=== PATIENT | female | born 1945 | race Caucasian/White ===

== ENCOUNTER 2020-07-08 13:30 | Outpatient (RCR) | payer MEDICARE, SELFPAY ==
--- NOTE | 2020-05-19 10:27 | PCCPR ---
Absent-has been having issues with her gallbladder. States she has to have surgery in a couple of weeks to get it removed. Will also be absent Sunday-seeing the thoracic surgeon for a follow up and is getting a holter monitor placed.
--- NOTE | 2020-06-07 12:40 | PCCPR ---
Absent today, not feeling well.
--- NOTE | 2020-06-28 15:00 | PCCPR ---
Called out today, no reason given.
--- NOTE | 2020-07-05 09:51 | PCCPR ---
Absent due to weather Lizzette states she was scheduled for a MD visit in [facility], she cancelled. She would not be in today with the cold and snow.
== END 2020-07-08 16:00 | disposition home or self-care (01) ==
LOC: ANHCPREHAB 13:30
PROVIDERS: PCP Family Medicine; Visit Provider Internal Medicine Cardiovascular Disease
DX: Z95.5 Presence of coronary angioplasty implant and graft (principal)
CPT/HCPCS: 93798

== ENCOUNTER 2024-10-08 00:56 | Day surgery (SDC) | payer MEDICARE, SELFPAY ==
[2024-10-06 09:44] VITALS: BMI 25.6
--- OUTSIDE RECORDS SUMMARY | 2024-10-08 00:58 | XMS_ITS | Encounter Summary ---
Author Organization [facility] Address [address] [place] [address] Care Team Providers Care Seamer Name Role Phone Dev Galvin MD Primary Care Provider [phone] Wing Sweeney MD Unavailable [phone] Lincoln Vang MD Unavailable [phone] Manjeet Mcdonough MD Unavailable [phone] Ros Iqbal PT Unavailable Unavailable Reason for Referral * Diagnostic Imaging (Routine) - Closed Specialty Diagnoses / Procedures Referred By Contac t Referred To Contact Radiology Diagnoses Stage 3b chronic kidney disease (CKD) (HCC) Hypertension, unspecified type Hypertensive chronic kidney disease with stage 1 through stage 4 chronic kidney disease, or unspecified chronic kidney disease Acute renal failure with other specified pathological lesion in kidney 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 Procedures CT Abdomen Pelvis WO Contrast Thanh Nguyen MD [address] [place] [address] Phone: tel: fax: [address] [phone] Referral ID Status Reason Start Date Expiration Date Visits Re quested Visits Authorized [id number] Closed 09/29/2024 03/29/2025 1 1 Reason for Visit * Diagnostic Imaging (Routine) - Closed Specialty Diagnoses / Procedures Referred By Contac t Referred To Contact Radiology Diagnoses Stage 3b chronic kidney disease (CKD) (HCC) Hypertension, unspecified type Hypertensive chronic kidney disease with stage 1 through stage 4 chronic kidney disease, or unspecified chronic kidney disease Acute renal failure with other specified pathological lesion in kidney 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 Procedures CT Abdomen Pelvis WO Contrast Thanh Nguyen MD [address] [place] [address] Phone: tel: fax: [address] [phone] Referral ID Status Reason Start Date Expiration Date Visits Re quested Visits Authorized [id number] Closed 09/29/2024 03/29/2025 1 1 Encounter Details Date Type Department Care Team (Latest Contact Info) Description 10/06/2024 12:27 PM CDT - 10/06/2024 11:59 PM CDT Hospital Encounter [facility] [address] [place] [id number] Stage 3b chronic kidney disease (CKD) (HCC); Hypertension, unspecified type; Hypertensive chronic kidney disease with stage 1 through stage 4 chronic kidney disease, or unspecified chronic kidney disease; Acute renal failure with other specified pathological lesion in kidney; Neoplasm of right kidney; Neoplasm of uncertain behavior of right kidney Discharge Disposition: Discharge to home or self care Social History Tobacco Use Types Packs/Day Years Used Date Smoking Tobacco: Former Cigarettes 1 50 1 - 03/03/2020 Smokeless Tobacco: Never Comments:Down to 3 cigarette s per day for 2 weeks Alcohol Use Standard Drinks/Week Comments No 0 (1 standard drink = 0.6 oz pur e alcohol) AUDIT-C Answer Date Recorded Q1: How often do you have a drink containing alcohol? Never 08/07/2024 Q2: How many drinks containi ng alcohol do you have on a typical day when you are drinking? Patient does not drink Frequency of Binge Drinking Not on file 07/20 PHQ-2 Answer Date Recorded PHQ-2 Total Score (If total score is 3 or more points, staff should administer the PHQ-9) 0 07/22/2024 PHQ-9 Answer Date Recorded PHQ-9 Total Score 4 03/12/2024 Personal Safety Answer Date Recorded Have you ever been in or are you currently in a harmful physical or emotional relationship or is someone making you feel afraid or unsafe? 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 Gender Identity Not on file Sexual Orientation Not on file Occupation Industry Job Start Date Job End Date Retired Not on file Not on file Not on file documented as of this encounter Medications at Time of Discharge acetaminophen 325 mg capsule acetaminophen ER (TYLENOL) 650 mg 8 hr tablet Take 2 tablets (1,300 mg total) by mouth nightly acidophilus-pect in, citrus 100 million cell-10 mg capsule Take by mouth aspirin 81 mg enteric coated tablet Take 1 tablet (81 mg total) by mouth daily calcium carb/vit D3/minerals (CALCIUM 600 + MINERALS ORAL) 07/25/2021 cephalexin (KEFTAB) 250 mg tabletIndication s:Prevention of Bacterial Urinary Tract Infection Take 1 tablet (250 mg total) by mouth daily 90 tablet 3 10/18/2023 10/17/2024 cholecalciferol (cholecalciferol ) 25 mcg (1,000 unit) tablet Take 1 tablet (1,000 Units total) by mouth daily d-mannose 500 mg capsule Take 1 tablet by mouth 2 (two) times a day fluticasone propionate (FLONASE) 50 mcg/actuation nasal spray 2 sprays daily 09/02/2023 furosemide (LASIX) 40 mg tablet 1 tablet daily as needed for swelling 90 tablet 3 07/23/2024 metoprolol XL (TOPROL-XL) 25 mg extended release tablet TAKE 1 TABLET(25 MG) BY MOUTH DAILY 90 tablet 3 05/06/2024 ondansetron (ZOFRAN) 4 mg tablet Take 1 tablet (4 mg total) by mouth every 8 (eight) hours as needed for nausea or vomiting 60 tablet 3 08/07/2024 10/26/2024 potassium chloride ER 20 mEq CR tablet TAKE 1 TABLET(20 MEQ) BY MOUTH DAILY 90 tablet 2 10/06/2024 simethicone (MYLICON) 125 mg chewable tablet Take 1 tablet (125 mg total) by mouth 3 (three) times a day with meals 90 tablet 3 08/07/2024 12/05/2024 spironolactone (ALDACTONE) 25 mg tablet TAKE 1 TABLET(25 MG) BY MOUTH DAILY 90 tablet 3 11/28/2023 documented as of this encounter Discharge Disposition Disposition Code Departure Means Destination Discharge to home or self care documented in this encounter Plan of Treatment Pending Results Name Type Priority Associated Diagnoses Date /Time CT Abdomen Pelvis WO Contrast Imaging Schedule Routine, Read Routine (OP Routine) Stage 3b chronic kidney disease (CKD) (HCC) Hypertension, unspecified type Hypertensive chronic kidney disease with stage 1 through stage 4 chronic kidney disease, or unspecified chronic kidney disease Acute renal failure with other specified pathological lesion in kidney 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 10/06/2024 12:54 PM CDT Scheduled Orders Name Type Priority Associated Diagnoses Orde r Schedule CT Abdomen Pelvis WO Contrast Imaging Schedule Routine, Read Routine (OP Routine) Stage 3b chronic kidney disease (CKD) (HCC) Hypertension, unspecified type Hypertensive chronic kidney disease with stage 1 through stage 4 chronic kidney disease, or unspecified chronic kidney disease Acute renal failure with other specified pathological lesion in kidney 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 Once for 1 Occurrences starting 10/06/2024 until 10/06/2024 documented as of this encounter Visit Diagnoses Diagnosis Stage 3b chronic kidney disease (CKD) (HCC) Hypertension, unspecified type Hypertensive chronic kidney disease with stage 1 through stage 4 chronic kidney disease, or unspecified chronic kidney disease Acute renal failure with other specified pathological lesion in kidney 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
--- OUTSIDE RECORDS SUMMARY | 2024-10-08 00:58 | XMS_ITS | Clinical Summary ---
Author Organization [facility] Address [address] [place] [address] Phone Care Team Providers Care Software Verification Engineer Name Role Phone Dev Galvin MD Primary Care Provider [phone] Allergies No known active allergies Medications aspirin 325 MG Tablet Take 325 mg by mouth daily. Active vitamin E (TOCOPHEROL) 1000 UNIT Capsule Take 1,000 Units by mouth daily. Active loratadine (CLARITIN) 10 MG Tablet Take 10 mg by mouth daily. Active HYDROcodone-acet aminophen (NORCO) 5-325 MG Tablet Take 1 Tab by mouth every 6 hours as needed for Moderate pain (4-6) or more severe pain if patient requests. Active acetaminophen (TYLENOL) 500 MG Tablet Take 1,000 mg by mouth every 6 hours as needed for Mild pain (1-3) or more severe pain if patient requests. Active Calcium Carbonate-Vit D-Min (CALCIUM 600+D3 PLUS MINERALS) 600-800 MG-UNIT Tablet Take 1 Tab by mouth daily. Active Bupivacaine HCl-NaCl 0.125-0.9 % Solution 8 mL/hr by Intercatheter route continuous. Active ferrous sulfate 325 (65 Fe) MG Tablet Take 325 mg by mouth daily. Active magnesium hydroxide (MILK OF MAGNESIA) 400 MG/5ML Suspension Take 5 mL by mouth daily as needed for Constipation. Active Triamcinolone Acetonide 55 MCG/ACT Aerosol 1 [place] by Nasal route daily. Active Probiotic Product (PROBIOTIC DAILY PO) Take 1 Tab by mouth daily. 10/09/19 18 Active denosumab (PROLIA) 60 MG/ML Solution 60 mg by Subcutaneous route See Admin Instructions. physician administers in office every 6 months 11/07/19 18 Active silver sulfADIAZINE (SILVADENE) 1 % Cream Apply 1 Drop 2 times daily. Active Social History Tobacco Use Types Packs/Day Years Used Date Smoking Tobacco: Never Assessed Comments Unknown Sex and Gender Information Value Date Recorded Sex Assigned at Not on file Legal Sex Female 7:38 AM CDT Gender Identity Not on file Sexual Orientation Not on file Last Filed Vital Signs Vital Sign Reading Time Taken Comments Blood Pressure 120/60 12/06/2017 9:26 AM CDT Pulse 76 12/06/2017 9:26 AM CDT Temperature 36.4 C (97.6 F) 12/06/2017 9:26 AM CDT Respiratory Rate 18 12/06/2017 9:26 AM CDT Oxygen Saturation 96% 12/06/2017 9:26 AM CDT Inhaled Oxygen Concentration - - Weight 59 kg (130 lb) 10/08/2017 9:44 AM CDT Height 160 cm (5' 3 ) 10/08/2017 9:44 AM CDT Body Mass Index 23.03 10/08/2017 9:44 AM CDT Plan of Treatment Health Maintenance Due Date Last Done Comments Hepatitis C Virus (HCV) Screening 1945 TdaP Immunization 1945 Zoster Immunization (1 of 2) 1993 Respiratory Syncytial Virus (RSV) Immunization (Adult) (1 - 1-dose 75+ series) 2018 SARS-COV-2 Immunization ( season) 2024 08/24/2021, 02/15/2021, 07/14/2020, Additional history exists Influenza Immunization (Season Ended) 2025 02/10/2021, 02/22/2020, 05/07/2019, Additional history exists Pneumococcal Immunization (50+ years) Completed 02/12/2015, 11/11/2008 Hepatitis B Immunization Aged Out No longer eligible based on patient's age to complete this topic Human Papillomavirus (HPV) Immunization Aged Out No longer eligible based on patient's age to complete this topic Meningococcal Immunization (ACWY) Aged Out No longer eligible based on patient's age to complete this topic Rotavirus Immunization Aged Out No lo nger eligible based on patient's age to complete this topic Insurance MEDICARE C [facility] Advance Directives Documents on File Type Date Recorded 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
--- OUTSIDE RECORDS SUMMARY | 2024-10-08 00:58 | XMS_ITS | Patient Health Record ---
Author Organization [facility] Address [address] [place] [address] Care Team Providers Care Lead Database Developer Name Role Phone Monica Alvarado Unavailable [phone] Allergies No Known Allergies Reason For Referral No Information Medications Medication SIG (Take, Route, Frequency, Duration) Notes Start Date End Date Status cholecalciferol (vitamin D3) 25 mcg (1,000 unit) take 1 capsule by oral route once oral 1 *Reorder from [employer] for eRx and Interaction Alerts* Active Pantoprazole Sodium 40 MG take 1 tablet (40 mg) by oral route once daily Oral 1 Active Metoprolol Succinate ER 25 MG take 1.5 tablets daily Oral Active Calcium Carbonate 650 mg calcium (1,625 mg) take 1 tablet by oral route once Oral 1 *Pick strength-form from [employer] for eRX* Active MiraLax 17 GM take 1 packet (17 gram) mixed with 8 oz. water, juice, soda, coffee or tea by oral route once daily Oral 1 Active Prolia 60 mg/mL inject 1 milliliter (60 mg) by subcutaneous route every 6 months in the upper arm, upper thigh or abdomen subcutaneous *Pick strength-form from [employer] for eRX* Active Spironolactone 25 MG take 1 tablet (25 mg) by oral route once daily Oral 1 Active Furosemide 20 MG take 1 tablet (20 mg) by oral route once daily Oral 1 Active FiberCon 625 MG take 1 tablet by oral route once Oral 1 Active Loratadine 10 MG take 1 tablet (10 mg) by oral route once daily Oral 1 Active Aspirin Adult Low Strength 81 MG take 1 tablet (81 mg) by oral route once daily Oral 1 Active Acetaminophen 325 MG take 2 tablets (650 mg) by oral route every 4 hours as needed Oral 6 Active Famotidine-Ca Carb-Mag Hydrox 10 -800-165mg take 1 daily as needed for heartburn oral *Pick strength-form from [employer] for eRX* Active Plan Of Treatment No Information Insurance Providers Payer Name Payer Address Payer Phone Subscriber Number Group Number Insured Name Patient Relationship to Insured Coverage Start Date Coverage End Date DO NOT USE [id number] Lizzette Allen Self - patient is the insured Medical (General) History Surgical History Surgery Date(Month/Year) Mitral Valve repair; 2020-11-13 Cholecstectomy; 2020-11-13 Closed treatment of patellar fracture; 2 MAZE Procedure; 2020-11-13 tonsilectomy; 2020-11-13 Hysterectomy; 2020-11-13 Breast lumpectomy with sentinel node bio psy; 2020-11-13
--- OUTSIDE RECORDS SUMMARY | 2024-10-08 00:58 | XMS_ITS | Clinical Summary ---
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 Name Role Phone Dev Galvin MD Primary Care Provider [phone] Wing Sweeney MD Unavailable [phone] Lincoln Vang MD Unavailable [phone] Manjeet Mcdonough MD Unavailable [phone] Ros Iqbal PT Unavailable Unavailable Allergies No known active allergies Medications acidophilus-pect in, citrus 100 million cell-10 mg capsule Take by mouth Active cholecalciferol (cholecalciferol ) 25 mcg (1,000 unit) tablet Take 1 tablet (1,000 Units total) by mouth daily Active d-mannose 500 mg capsule Take 1 tablet by mouth 2 (two) times a day Active calcium carb/vit D3/minerals (CALCIUM 600 + MINERALS ORAL) 07/26/19 22 Active aspirin 81 mg enteric coated tablet Take 1 tablet (81 mg total) by mouth daily Active acetaminophen 325 mg capsule Activ e lansoprazole (PREVACID) 30 mg capsule Take 1 capsule (30 mg total) by mouth daily In evening 90 capsule 3 04/26/20 23 Active denosumab (PROLIA) 60 mg/mL syringeIndicatio ns:Age-related osteoporosis without current pathological fracture Inject 1 mL (60 mg total) under the skin once for 1 dose 1 mL 07/25/19 24 Active cephalexin (KEFTAB) 250 mg tabletIndication s:Prevention of Bacterial Urinary Tract Infection Take 1 tablet (250 mg total) by mouth daily 90 tablet 3 10/18/19 24 025 Active fluticasone propionate (FLONASE) 50 mcg/actuation nasal spray 2 sprays daily 09/02/19 24 Active spironolactone (ALDACTONE) 25 mg tablet TAKE 1 TABLET(25 MG) BY MOUTH DAILY 90 tablet 3 11/28/19 24 Active famotidine (PEPCID) 20 mg tabletIndication s:Vocal fold nodule Take 1 tablet (20 mg total) by mouth nightly 90 tablet 3 01/31/20 24 Active acetaminophen ER (TYLENOL) 650 mg 8 hr tablet Take 2 tablets (1,300 mg total) by mouth nightly Active metoprolol XL (TOPROL-XL) 25 mg extended release tablet TAKE 1 TABLET(25 MG) BY MOUTH DAILY 90 tablet 3 05/06/20 24 Active furosemide (LASIX) 40 mg tablet 1 tablet daily as needed for swelling 90 tablet 3 07/24/19 25 Active simethicone (MYLICON) 125 mg chewable tablet Take 1 tablet (125 mg total) by mouth 3 (three) times a day with meals 90 tablet 3 08/08/19 25 025 Active ondansetron (ZOFRAN) 4 mg tablet Take 1 tablet (4 mg total) by mouth every 8 (eight) hours as needed for nausea or vomiting 60 tablet 3 08/08/19 25 025 Active potassium chloride ER 20 mEq CR tablet TAKE 1 TABLET(20 MEQ) BY MOUTH DAILY 90 tablet 2 10/07/19 25 Active potassium chloride ER 20 mEq CR tablet TAKE 1 TABLET(20 MEQ) BY MOUTH DAILY 90 tablet 2 03/31/20 24 025 Discontinued Active Problems Problem Noted Date Diagnosed Date History of colonic polyps 08/29/2024 Constipation 08/29/2024 Encounter for screening colonoscopy 08/29/2024 Laryngopharyngeal reflux 07/22/2024 Assessment & Plan (07/22/2024 2:56 PM GENERAL OPHTHALMOLOGIST): Cpntinue sno dual PPI and H2 favian to good effect and willfollwore sponse. Stage 3b chronic kidney disease 07/22/2024 Assessment & Plan (07/22/2024 2:56 PM GENERAL OPHTHALMOLOGIST): [id number] hydraiton and f/u with Dr. Nguyen, renal. No change at the present time. Peripheral tear of meniscus of right knee 2023 Medicare annual wellness visit, subsequent 02/02 Vocal fold nodule 01/31/2024 Assessment & Plan (04/30/2024 2:38 PM GENERAL OPHTHALMOLOGIST): Resolved, no nodule seen today Continue Prevacid 30-60 minutes prior to any other medication, food or fluids other than water Pepcid 20 mg at bedtime Assessment & Plan (01/31/2024 2:55 PM CDT): Prevacid 30-60 minutes prior to any other medication, food or fluids other than water Pepcid 20 mg at bedtime Follow up in 3 months for rescope and consider MDL with removal of Right true vocal fold nodule if not gone by then Stage 3a chronic kidney disease 01/06/2024 Sore throat 01/06/2024 Change in voice 01/06/2024 Lipid screening 01/06/2024 Assessment & Plan (07/22/2024 2:56 PM GENERAL OPHTHALMOLOGIST): Labokwr ordered and pending. Acute non-recurrent pansinusitis 06/01/2023 Assessment & Plan (06/01/2023 12:02 PM GENERAL OPHTHALMOLOGIST): Patient has been experiencing congestion and sinus pressure for greater than 2 weeks. Prescribed course of antibiotics, instructed patient to take medication with food. Can continue Tylenol/ ibuprofen as needed for headaches. Recommended Flonase use. Stressed importance of immediately discontinuing oxymetazoline. Patient to follow-up if no improvement in the next week or sooner if any new or worsening symptoms occur. Rhinitis medicamentosa 06/01/2023 Assessment & Plan (06/01/2023 12:00 PM GENERAL OPHTHALMOLOGIST): Explained to patient that using oxymetazoline beyond 3 days will cause rebound congestion. Instructed her to discontinue medication immediately. Prescribed prednisone taper and instructed on Flonase use. Skin tear of left elbow without complication Assessment & Plan (02/13/2023 3:54 PM CDT): Injury occurred greater than 2 weeks ago. Patient reports increased redness and tenderness in the past few days. No obvious signs of infection or systemic signs of infection. Given regression prescribed doxycycline in addition to topical mupirocin ointment. Instructed patient to wash with soap and water pat dry and apply thin layer of mupirocin. Alternate covering for protection and leaving open to air at times. Will update Tdap today. Instructed patient to follow-up with me in office she experiences any new or worsening symptoms. Cervical spinal stenosis 10/26/2022 Pancreatic cyst 08/18/2022 Assessment & Plan (05/04/2023 12:38 PM GENERAL OPHTHALMOLOGIST): Asymptomatic at the time. Will plan repeat evaluation in 1 year as recommended. Assessment & Plan (12/07/2022 12:04 PM CDT): Repeat MRCP to evaluate the pancreas and the pancreatic cyst in April of 2023 as recommended. 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 Small size cyst noted and no intervention was needed. She had EUS of the pancreas last year. Assessment & Plan (08/18/2022 12:17 PM CDT): Small 2 mm cyst noted on endoscopic ultrasound in 2021. Appearance was suggestive of a side-branch intraductal mucinous cystic neoplasm. This size the small and at this point no intervention is needed. Will plan repeat endoscopic ultrasound in 1 or 2 years. Spondylosis of lumbar region without myelopathy or radiculopathy 06/13/2022 Spinal stenosis of lumbar re gion without neurogenic claudication 06/13/2022 Mucinous cystadenoma of pancreas 05/10/2022 Assessment & Plan (05/10/2022 3:33 PM GENERAL OPHTHALMOLOGIST): Small 2 mm cystic lesions suggestive of branch chain mucinous neoplasm with the pancreas noted on endoscopic ultrasound. I doubt this is contributing to any symptoms at this time. Also considering the patient age and small size of the lesion conservative follow-up with imaging or repeat endoscopic ultrasound in 1 year will be pursued Chronic abdominal pain 03/25/2022 Assessment & Plan (05/04/2023 12:36 PM GENERAL OPHTHALMOLOGIST): Chronic upper abdominal pain likely referred burn from her back and the significant spinal stenosis. I think gentle exercising and muscle relaxant will be of benefit. Patient is following with pain management. Assessment & Plan (08/18/2022 12:18 PM CDT): Patient has chronic upper abdominal pain. All GI workup has been nonconclusive. I suspect neuropathic pain or possibly radiating pain from the back. Patient did not tolerate much of the pain modulating agents such as gabapentin or nortriptyline. Patient does not tolerate Linzess for the chronic constipation. She is doing well with fiber supplements. At this point she will try to see pain management as she might benefit from some intervention regarding her back pain which could be radiating to the front. Otherwise will plan to see the patient back in the office in 4 months and follow the pattern of her symptoms. Assessment & Plan (03/25/2022 7:23 PM CDT): Patient have chronic upper abdominal pain. Pain seems worse at this time with mild new weight loss. Will re-evaluate to rule out new changes. Schedule CT abdomen and pelvis with oral contrast only considering her Kidney issues. If normal will refer for EGD with EUS of the pancreas. To help with symptoms will start Gabapentin 100 mg PO bid. To rule out referred back pain, will schedule MRI of the thoracic and lumbar spines. Degenerative disc disease, cervical 09/27/2021 Degenerative cervical spinal stenosis 09/27/2021 Facet arthropathy, cervical 09/27/2021 Cervical radiculopathy 09/01/2021 Chronic right shoulder pain 09/01/2021 Chronic kidney disease 05/24/2021 Chills 03/28/2021 Pulmonary hypertension, unspecified 10/12/2020 Assessment & Plan (07/22/2024 2:56 PM GENERAL OPHTHALMOLOGIST): No s/s of fluid overlaoad. Continue to montior renal function with balance of diuresis and no increaed work of breathing. 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 Pathology reviewed as a benign lesion from the liver biopsy. Okay for submerging incisions. No heavy lifting for a further 2 weeks. Patient will call us back with any further questions or concerns. Assessment & Plan (06/24/2020 9:57 AM GENERAL OPHTHALMOLOGIST): Symptoms and HIDA scan consistent with biliary dyskinesia. We will set her up for laparoscopic cholecystectomy. Postoperative risks such as post cholecystectomy diarrhea have been explained. She is in understanding. Pre-admission testing will be sent in. Consent to be obtained. COVID -19 testing ordered Dyspepsia 04/20/2020 Overview (04/20/2020): Added automatically from request for surgery [id number] Assessment & Plan (08/12/2024 4:26 PM CDT): Still some nausea.continue Zofran PRN. Use Gas X with meals. Patient to call for update in 1 week. Assessment & Plan (05/04/2023 12:39 PM GENERAL OPHTHALMOLOGIST): Patient has tried [id number] Prevacid and seems to help. Will try Prevacid in the evening. Smoker 03/30/2020 Assessment & Plan (03/30/2020 3:26 PM GENERAL OPHTHALMOLOGIST): I discussed the importance of maintaining smoking cessation. This took approximately 5 minutes. Patient appears to be mildly motivated toward success. She has had prior success of up to 6 months. Status post Maze operation for atrial fibrillati on 03/30/2020 Overview (03/30/2020): Complex mitral valve repair using resection of the posterior leaflet and placement of a 32 Vance Bacon flexible band as well as a left atrial Patel Maze surgical ablation Current use of parts counterman anticoagulation 020 Assessment & Plan (03/30/2020 3:24 PM GENERAL OPHTHALMOLOGIST): With a chads Vasc score of 4 and a has bled score of 1, the patient would benefit from long-term anticoagulation. Leukocytosis 03/06/2020 Assessment & Plan (03/07/2020 10:32 AM CDT): WBC improved Remains afebrile Encourage OOB and IS UA neg Ileus, postoperative 03/05/2020 Assessment & Plan (03/07/2020 10:31 AM CDT): + BM Diet advanced and tolerating Encourage OOB and ambulation Continue bowel regimen Nausea improved. Acute blood loss anemia 03/05/2020 Assessment & Plan (03/05/2020 9:08 AM CDT): H/H remains stable- will continue daily CBC PAF (paroxysmal atrial fibrillation) 03/05/2020 Assessment & Plan (07/22/2024 2:56 PM GENERAL OPHTHALMOLOGIST): S/p maze. Remains in NSR. NO clinical palp;tiations. Assessment & Plan (07/10/2022 10:43 AM GENERAL OPHTHALMOLOGIST): SP Maze in February 2020. Stable denies reoccurrence, regular rate and rhythm on exam today. Metoprolol 25 mg xl daily. Assessment & Plan (03/30/2020 3:25 PM GENERAL OPHTHALMOLOGIST): Patient has had no evidence for recurrence of atrial fibrillation. She will continue with the amiodarone for another month and then this should be discontinued. Assessment & Plan (03/08/2020 12:13 PM CDT): PAF present on admission Now s/p MAZE on 03/03/2020 Currently NSR Will continue to monitor Decreased amio to 200 mg daily 2/2 nausea QTc 442 msec today H/O mitral valve repair 03/03/2020 Overview (03/30/2020): Complex mitral valve repair using resection of the posterior leaflet and placement of a 32 Vance Bacon flexible band as well as a left atrial Patel Maze surgical ablation Assessment & Plan (07/10/2022 10:52 AM GENERAL OPHTHALMOLOGIST): SP Mitral valve repair with mild to moderate MR on ECHO in January 2022. Asymptomic in clinic today with stable chronic ESCAMILLA. Improved ESCAMILLA and abdominal bloating after resuming aldactone. BMP and BNP today. Follow up [address] Mcdonough. IBS (irritable bowel syndrome) 02/11/2020 Assessment & Plan (05/04/2023 12:37 PM GENERAL OPHTHALMOLOGIST): Currently her bowel movements are good and the comfortable. No issues with constipation and diarrhea. She is managing well with the diet changes so she will continue the same. She actually gained few lb. 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 She had gallbladder US to f/u and this showed partial calcification but no porcelain gallbladder. She had some sludge as well and fatty liver. Discussed findings with patient. No biliary symptoms noted. Dyspnea on exertion 10/09/2019 Assessment & Plan (10/09/2019 11:17 AM CDT): Reviewed last CT lung ca screenin09/25/16 centrilobular emphysema found. Does not want to repeat CT at this time d/t covid epidemic & does not want to drive to [facility]. Agreeable to CXR at [facility]. Will contact w/results once rec'd. Discussed smoking cessation. Discussed maintenance COPD inhalers pending CXR results. Reviewed red flags. Discussed pursed lip breathing. Gastroesophageal reflux disease 10/09/2019 Assessment & Plan (01/12/2020 12:13 PM CDT): Overall doing well with pantoprazole daily and following GERD diet. She says she does still get breakthrough symptoms mostly in the evening. Pt should continue pantoprazole and follow GERD diet. She can use famotidine 20- 40mg prn for breakthrough symptoms in the evening. Assessment & Plan (12/11/2019 3:16 PM CDT): Pt had episode of N/V after having tomato products. She also had a few weeks where she would have burning in her throat and reflux. Started on omep 20mg daily May 21st but not too much difference in symptoms. Will stop omep and start pantoprazole 40mg daily. Continue to follow GERD diet. Assessment & Plan (10/09/2019 11:14 AM CDT): To start otc omeprazole 20mg daily. Stressed need to stop smoking. Reviewed provocative foods to avoid: caffeine, citrus, ETOH, carbonated drinks, fried/fatty/fast foods & rich/creamy sauces. Reviewed diet/exercise recommendations: 20-30min physicaly activity daily at minimum. Reviewed med Ses & scheduling. Weight loss will help improve GERD sxs. Keep HOB elevated 30 degrees & not eat 2-3 hrs before bedtime. Encounter for Medicare annual wellness exam 09/19 Assessment & Plan (10/08/2019 11:08 PM CDT): 1. Eat a healthy diet: focus on lean meats and proteins, more fruits, vegetables and whole grains and low in sugars and fats. Limit red meat and avoid processed meat. 2. Maintain a healthy weight; avoid being overweight. Aim for a normal body mass index (BMI) of 18.5-24.9. Help learning to eat healthier, we can set up appointment with core winder/cell room operator. 3. Have an active lifestyle, strive for 30 minutes of moderate exercise 5 times a week and strength or resistance training at least twice a week. 4. Use broad-spectrum (UVA+UVB) sunscreen with SPF 30 or greater, is water resistant, limit time spent in the sun (10 am-4pm), wear hat, wear UV protective clothing, wear sunglasses. Never use a tanning bed. Skin that was irradiated may be more sensitive over your lifetime. 5. Does smoke; does not wish to participate in a smoking cessation program. 6. Limit alcohol intake, 1 drink per day for a woman Encounter for screening for lipoid disorders Assessment & Plan (10/09/2019 11:16 AM CDT): Has not been watching intake during Covid longterm at home orders. Has been eating poor food choices. 08/14/18 JY=788 HDL=63 ZG=167 KNV=551 TC/HDL=3.0 10/09/19 RM=419 HDL=66 RX=629 JWN=564 TC/HDL=3.3 Copy of results as well as written explanations given to Mrs Allen. Reviewed diet changes to improve lipid panel. Chronic idiopathic constipation 03/25/2019 Assessment & Plan (08/12/2024 4:32 PM CDT): Add fiber gummies daily. Will check abdominal X ray to look for stool burden. Will schedule colonoscopy because of h/o polyps. Assessment & Plan (12/07/2022 12:03 PM CDT): Patient is comfortable with her bowel movements at this time. She uses milk of magnesia and is helpful. She did not tolerate any other laxatives or Linzess. We can continue milk of magnesia daily or as needed along with fiber supplements. Assessment & Plan (05/10/2022 3:31 PM GENERAL OPHTHALMOLOGIST): Start Linzess 145 micro g daily or every other day to help with the bowel movements. Patient can also use MiraLax powder daily or as needed. This may help improve patient's functional symptoms. Assessment & Plan (01/12/2020 12:12 PM CDT): Doing better on miralax once in the morning, fiber gummies in evening, and Fiber One cereal in evening. She says she had a good BM yesterday and this regimen seems to work well so far. Assessment & Plan (12/11/2019 3:19 PM CDT): Pt is taking fiber supplement daily and probiotics. She started eating Fiber One cereal consistently and now having more normal daily BM's. Pt says she tried taking a laxative pill but caused lots of abdominal pain/cramping. Pt advised to use Miralax prn along with fiber supplements. Assessment & Plan (06/02/2019 12:08 PM GENERAL OPHTHALMOLOGIST): Doing well on fiber gummies and probiotics daily. Continue this regimen. F/U prn. Assessment & Plan (03/25/2019 2:29 PM GENERAL OPHTHALMOLOGIST): Will add fiber supplement daily and patient to start taking probiotics. Cervicalgia 05/01/2018 Assessment & Plan (05/01/2018 3:58 PM GENERAL OPHTHALMOLOGIST): Left neck, left shoulder, left chest and left arm pain after participating in PT for her knee. She has been trying stretching, heat, ice, Aleve with no improvement. Will order PT Will have her try Medrol Dose pack and Tylenol Continue with heat and ROM Most likely r/t scar tissue from surgery and radiation s/p breast cancer treatment. RTC in 4 weeks for re-evaluation Acute cystitis without hematuria 02/20/2018 Assessment & Plan (02/20/2018 11:14 AM CDT): Today POSITIVE Nitrites in urine dipstick, +leuk, +blood Right flank pain Recurrent UTI's-4 times a year May need Urology consult if continues Last one in September 2017-+E.Coli-resistent to Cipro and Bactrim Pt. Managing constipation better with MOM Not sexually active Pt. To start Vitamin C 500 mg TID and cranberry extract daily Complete antibiotic as prescribed-Nitrofurantoin x 7 days Do not hold your urine. Urinate as soon as you feel the need to go Drink plenty of water and fluids. Limit alcohol, caffeine, and citrus juices- They will irritate the bladder Wipe front to back & wear cotton underwear Try emptying your bladder before and after having sexual intercourse Follow up with your PCP if you are not getting better For recurrent Urinary tract infections: UTI prevention strategies including use of vaginal estrogen(if postmenopausal) , Vitamin C supplementation,cranberry tablet supplementation, voiding after intercourse, scheduled voiding every 2-3 hours, and antibiotic suppression. If you have severe back, flank, or groin pain with nausea/vomiting or are unable to get comfortable from the pain, please go to ER for further treatment Tylenol/Motrin for pain Tobacco dependence due to cigarettes 01/24/2018 Assessment & Plan (10/09/2019 11:14 AM CDT): Precontemplative. Encouraged complete smoking cessation. Discussed different types of medications & lzqo-wcr-huhwlem aides to help with cessation. Reviewed CT lung ca screenin09/25/16 centrilobular emphysema. Having ESCAMILLA at times now. Senile osteoporosis 12/19/2017 Dysuria 11/30/2017 BMI 24.0-24.9, adult 05/02/2017 Assessment & Plan (02/20/2018 11:07 AM CDT): BMI wnl Diet= low-carb Limit white bread, rice, pasta, potatoes, juice, energy drinks, coffee creamers with sugar, sugar sodas, candy, cake, cookies, ice cream. Be more careful with starchy vegetables like corn, carrots, and fruits. Stay away from processed foods, fast foods, fried foods. The cornerstone of this diet is lean grilled meats, green salads or cooked greens, fat-free milk, cottage cheese, nuts like [id number], protein bars with 10-15 g of protein and 20-30 g of carbohydrate. Choose whole grain breads and pastas, brown rice, sweet potatoes, read onions--these whole grains absorb more slowly thus blood sugar does not surge so high so quickly. Avoid drinking juice, eat a piece of fruit instead. History of malignant neoplasm of breast 03/06/20 Multiple benign melanocytic nevi 08/15/2016 Vitamin D deficiency 06/09/2016 Overview (08/25/2016): Vitamin D deficiency Assessment & Plan (03/01/2020 6:04 PM CDT): Check vitamin D level Skin neoplasm 08/04/2014 Actinic keratosis 08/04/2014 Nevus of multiple sites of trunk 03/18/2013 Age-related osteoporosis wit hout current pathological fracture 12/04/2011 Overview (08/31/2017): Description: present many years tried RAL, RIS, ALN-lots of GI upset Assessment & Plan (07/22/2024 2:55 PM GENERAL OPHTHALMOLOGIST): Continues on prolia without diffiuclties and iwll follow response. NO change at the presnet time. Assessment & Plan (07/23/2023 11:00 AM GENERAL OPHTHALMOLOGIST): Chronic, uncontrolled, slightly worsening Reviewed and discussed patient last bone density scan results Plan to continue treatment with Prolia injections every 6 months Check labs soon Fall precautions Recommend to take current calcium and vitamin-D supplements Advised to include at least 2-3 servings of calcium intake in diet Follow-up in 1 year Assessment & Plan (10/03/2017 12:41 AM CDT): Continue with calcium and vitamin-D supplementation. Patient is on Prolia. Recurrent UTI 12/04/2011 Seborrheic keratosis 10/13/2010 Lump or mass in breast 11/18/2003 Cellulitis 11/11/2003 Allergic rhinitis 03/24/2003 Resolved Problems Problem Noted Date Diagnosed Date Resolved Date Mitral valve disorder 02/24/20202019 Overview (02/24/2020): Added automatically from request for surgery [id number] Assessment & Plan (03/08/2020 12:13 PM CDT): S/p Mitral Valve Repair, IRENE, MAZE on 03/03 Continue post operative care Increase activity as tolerated PT/OT.OOB Will dc pleural chest tubes today and repeat PA/Lat CXR DC Prevena Holding on low dose BB 2/2 low BP COPD exacerbation 02/17/2020 01/06/2024 Assessment & Plan (03/02/2020 9:25 AM CDT): She was prescribed home oxygen after a recent hospitalization, Dr Vang wants to see how she does off of oxygen prior to doing surgery Will order nebs if needed Centrilobular emphysema 10/09/201912/19 Assessment & Plan (10/09/2019 11:18 AM CDT): Continues to smoke [address] lung ca screenin09/25/16 centrilobular emphysema found. Does not want to repeat CT at this time d/t covid epidemic & does not want to drive to [facility]. Agreeable to CXR at [facility]. Will contact w/results once rec'd. Discussed smoking cessation. Discussed maintenance COPD inhalers pending CXR results. Reviewed red flags. Discussed pursed lip breathing. BMI 25.0-25.9,adult 10/09/2019 12/11/19 Assessment & Plan (10/09/2019 11:18 AM CDT): Discussed healthy diet and importance of regular physical activity. BMI is acceptable for this patient. Lower abdominal pain 03/13/2019 020 Overview (03/13/2019): Added automatically from request for surgery [id number] Assessment & Plan (06/02/2019 12:08 PM GENERAL OPHTHALMOLOGIST): Symptoms have resolved after completing course of abx. Assessment & Plan (03/25/2019 2:29 PM GENERAL OPHTHALMOLOGIST): Pt had CT of abdomen, colonoscopy, and labs done all unremarkable. No explanation for the pain she is experiencing. Possible this may be functional or neuropathic; however, we will try giving her a course of antibiotics for possible infection or bacterial overgrowth. After taking the antibiotics, she should then start on a probiotic daily. She also should start on fiber supplement daily. She has appointment with her LEGAL ANALYST doctor to rule out pain from this area. We will then follow up after this to reassess her symptoms and see how she is doing on the fiber, probiotics, and after finishing the flagyl. Assessment & Plan (03/13/2019 2:55 PM CDT): No fevers, chills, N/V, or altered bowel function involved. Pt does have history of 2 different kinds of cancer. Will order CT of abdomen/pelvis with contrast and schedule colonoscopy. Will also order CBC, CMP, ESR, CRP. Follow up after imaging and procedures are completed. If these tests are negative, I would recommend that patient be seen by LEGAL ANALYST. Urinary frequency 02/20/2018 10/08/2019 Closed displaced fracture of right patella 10/03/2017 10/08/2019 Assessment & Plan (10/03/2017 12:40 AM CDT): Ortho was consulted. Continue with p.r.n. morphine for pain control. NPO after midnight. Acute URI 04/09/2017 10/08/2019 Tobacco use 03/08/2017 10/08/2019 Assessment & Plan (10/03/2017 12:41 AM CDT): Patient smokes 1-2 packs per day since age of 23. She currently smokes 1 pack per day. She is refusing nicotine patch at this time. Assessment & Plan (05/02/2017 3:29 PM GENERAL OPHTHALMOLOGIST): Quit Smoking https://smokefree.gov/ Nicotine replacement therapy (NRT) is the most commonly used family of quit smoking medications. NRT reduces withdrawal feelings by giving you a small controlled amount of nicotine?but none of the other dangerous chemicals found in cigarettes. This small amount of nicotine helps satisfy your craving for nicotine and reduces the urge to smoke. NRT can t do all the work. It can help with withdrawal and cravings. But it won t completely take away the urge to smoke. Even if you use NRT to help you stop smoking, quitting can still be hard. Combining NRT with other strategies can improve your chances of quitting and staying quit. To give yourself the best chance for success, explore other quit methods you can combine with medication. Also think about: Developing a quit plan. Using quit programs such as SmokefreeTXT or calling a quitline. Using the [employer] jacinto for tips and inspiration to help you be smokefree. Prepare, Reduce creavings and Triggers, Reduce stress, Get Active, Eat Healthy Gum, Patches, Inhaler, lozenges, nasal spray or medications like Wellbutrin, Chantix Remind yourself of the rewards of quitting to help yourself stay on track: 20 minutes: heart rate, blood pressure drop 12 hours: carbon monoxide in blood stream drops to normal 2 weeks-3 months: circulation, lung function improve; heart attack risk begins to drop 1-9 months: cough less, breathe easier 1 year: risk of coronary heart disease cut in half 2-5 years: risk of cancer of mouth, throat, esophagus, bladder cut in half; stroke risk is reduced to that of a nonsmoker 10 years: half as likely to from lung cancer; risk of kidney or pancreatic cancer decreases 15 years: risk of coronary heart disease same as non-smoker s risk EXTRA MONEY Acute maxillary sinusitis 06/09/2016 Overview (08/25/2016): Acute non-recurrent maxillary sinusitis Acute urinary tract infection 12/28/2015 10/08/2019 Overview (08/25/2016): Acute UTI Assessment & Plan (05/02/2017 3:26 PM GENERAL OPHTHALMOLOGIST): Complete antibiotic as prescribed Do not hold your urine. Urinate as soon as you feel the need to go Drink plenty of water and fluids. Limit alcohol, caffeine, and citrus juices- They will irritate the bladder Wipe front to back & wear cotton underwear Try emptying your bladder before and after having sexual intercourse Follow up with your PCP if you are not getting better If you have severe back, flank, or groin pain with nausea/vomiting or are unable to get comfortable from the pain, please go to ER for further treatment Tylenol/Motrin for pain Edema 10/04/2013 10/08/2019 Overview (08/23/2016): EDEMA Dermatitis 10/04/2013 10/08/2019 Overview (08/23/2016): DERMATITIS NOS Mastodynia 03/24/2003 10/09/2019 Fever 10/08/2019 Mitral valve insufficiency 1 05/30/2019 Encounters Date Type Department Care Team Description 10/06/2024 12:27 PM CDT - 10/06/2024 11:59 PM CDT Hospital Encounter [facility] [address] [place] [address] Stage 3b chronic kidney disease (CKD) (HCC); Hypertension, unspecified type; Hypertensive chronic kidney disease with stage 1 through stage 4 chronic kidney disease, or unspecified chronic kidney disease; Acute renal failure with other specified pathological lesion in kidney; Neoplasm of right kidney; Neoplasm of uncertain behavior of right kidney Discharge Disposition: Discharge to home or self care 09/18/2024 Telephone [facility] [address] [phone] Dev Galvin MD Referral Request 09/17/2024 Telephone [facility] Group Gastroenterology at [address] [place] [address] Milo Hill MA 09/17/2024 Telephone [facility] Medical Group Gastroenterology at [address], [place] [address] Milo Hill MA 09/04/2024 3:48 PM CDT - 09/04/2024 11:59 PM CDT Hospital Encounter [facility] [address] [place] [address] CKD stage 3b, GFR 30-44 ml/min (HCC); Hypertension, unspecified type Discharge Disposition: Discharge to home or self care 08/29/2024 Telephone [facility] Medical [facility] Gastroenterology at [address] [address] Pedro Almanza MD 08/29/2024 Telephone [facility] Medical Group Gastroenterology at [address] [place] [address] Bethany Garcias 08/25/2024 2:00 PM CDT Clinical Support [address] [place] [address] Senile osteoporosis (Primary Dx) 08/19/[address] [place] [address] Tessa Resendiz RN 08/15/2024 Orders Only [facility] Medical Group Gastroenterology at [address] [place] [address] Pedro Almanza MD 08/14/2024 1:05 PM CDT Lab [facility] [address] [place] [address] 08/07/2024 11:49 AM CDT - 08/07/2024 11:59 PM CDT Hospital Encounter [facility] [address] [place] [address] Chronic idiopathic constipation Discharge Disposition: Discharge to home or self care 08/07/2024 10:45 AM CDT Office Visit [facility] Gastroenterology at [place] [address] [facility] [address] [place] [address] Pedro Almanza MD Chronic idiopathic constipation (Primary Dx); Dyspepsia 08/05/2024 Telephone [facility] Diabetes [facility] Endocrinology [address] [place] [phone] Rasheed Hudson MD Prolia Injection at [facility] Infusion 08/04/2024 1:00 PM CDT Office Visit [facility] Medical [facility] Diabetes and Endocrinology [address] [place] [phone] Rasheed Hudson MD Age-related osteoporosis without current pathological fracture (Primary Dx); Stage 3a chronic kidney disease (HCC) 08/04/2024 10:50 AM CDT Lab [facility] [address] [place] [address] 08/04/2024 Telephone [facility] [address] [place] [address] [address], [place] [phone] Rasheed Hudson MD Prolia Injection at [facility] 08/04/2024 Orders Only [facility] at [facility] [address] [facility] [address] [place] [address] Rasheed Hudson MD 07/30/2024 Telephone [facility] [place] [address] [place] [address] Dev Galvin MD 07/30/2024 Telephone [facility] Medical Group Diabetes and Endocrinology [address] [place] [phone] Rasheed Hudson MD request to pcp for insurance referral 07/23/2024 1:10 PM GENERAL OPHTHALMOLOGIST Lab [facility] [address] [place] [phone] Lipid screening 07/22/2024 2:15 PM GENERAL OPHTHALMOLOGIST Office Visit [facility] Medical Group Primary Care at [address] [address] Dev Galvin MD Lipid screening (Primary Dx); Age-related osteoporosis without current pathological fracture; Pulmonary hypertension, unspecified (HCC); Laryngopharyngeal reflux; Stage 3b chronic kidney disease (HCC); PAF (paroxysmal atrial fibrillation) (HCC) from Last 3 Months Immunizations Immunization Administration Dates Next Due COVID-19 mRNA ([employer]ang[employer]) 0.3 m L (30 mcg) vaccine (12 years and up) 02/13/2023 Influenza, Quadrivalent, Sofya l Culture-based MDCK, Antibiotic Free, Intramuscular 07/08/2018 Influenza, Quadrivalent, Hig h Dose, Preservative Free, Intrr 02/07/2023,02/23/2022,02/10/2021,02/21 Influenza, Trivalent, High D ose, Split, Preservative Free, Intramuscular 02/07/2024,05/07/2019 Influenza, Unspecified 01/22/2024(Deferr ed: Patient Refused),02/07/2023,03/07/2022, 021,05/07/2019,05/01/2018(Deferred: Patient Refused),02/20/2018(Deferred: Patient Refused),01/24/2018(Deferred: Patient Refused),11/30/2017(Deferred: Patient Refused),05/21/2017(Deferred: Patient Refused),05/22/2016(Deferred: Patient Refused),05/22/2016(Deferred: Patient Refused),05/22/2016(Deferred: Patient Refused) Pfizer SARS-CoV-2 Monovalent Vaccination (12+ Yrs) PURPLE 08/24/2021,02/15/2021 Pneumococcal Conjugate PCV 13 02/12/2015 Pneumococcal Polysaccharide PPV23 11/11/2008 RSV Vaccine, Pref, Recombina nt, Subunit, Adjuvanted, PF, IM (Arexvy) 02/19/2023 Tdap 02/13/2023 ZOSTER Recombinant 12/22/2022,10/04/2022 Surgical History Surgery Date Site/Laterality Comments TONSILLECTOMY Tonsillectomy OTHER SURGICAL HISTORY right femur fx surgery OTHER SURGICAL HISTORY lymphectomy OTHER SURGICAL HISTORY melanoma excision CATARACT EXTRACTION Cataract surgery OTHER SURGICAL HISTORY Excision melanoma, right neck OTHER SURGICAL HISTORY 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, chemo/rads OTHER SURGICAL HISTORY 10/03/2017 knee repair after fall COLONOSCOPY 03/18/2019 VAGINAL HYSTERECTOMY 05/21/1979 - 05/20/1980 Pelvic organ prolapse: Vaginal hysterectomy, anterior repair CARDIAC ELECTROPHYSIOLOGY MAPPING AND ABLATION 05/21/2013 - 05/20/2014 SVT: Cardiac ablation KNEE SURGERY Right LYMPHADENECTOMY Left CATARACT EXTRACTION FRACTURE SURGERY TUBAL LIGATION CARDIAC CATHETERIZATION 02/19/2020 - 03/20/2020 MITRAL VALVE REPAIR 05/21/2019 - 05/20/2020 BREAST LUMPECTOMY 05/21/2004 - 05/20/2005 Left left breast ca w chemo and radiation CHOLECYSTECTOMY CARDIAC VALVE REPLACEMENT 2019 UPPER GASTROINTESTINAL ENDOSCOPY Medical History [id number]|2024-10-08 00:59:00|2024-10-08 00:58:00|XMS_ITS|BKG DAYUNGON|External Medical Summaries|[id number]|" Referral Summary Created on: October 08, 2024 Lizzette Allen : 1945 Sex: Female Author Organization [facility] Address [address] [place] [address] Care Team Providers 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 Name Role Phone Dev Galvin MD Primary Care Provider [phone] Wing Sweeney MD Unavailable [phone] Lincoln Vang MD Unavailable [phone] Manjeet Mcdonough MD Unavailable [phone] Ros Iqbal PT Unavailable Unavailable Encounters Date Type Department Care Team Description 10/06/2024 12:27 PM CDT - 10/06/2024 11:59 PM CDT Hospital Encounter [address] [address] Stage 3b chronic kidney disease (CKD) (HCC); Hypertension, unspecified type; Hypertensive chronic kidney disease with stage 1 through stage 4 chronic kidney disease, or unspecified chronic kidney disease; Acute renal failure with other specified pathological lesion in kidney; Neoplasm of right kidney; Neoplasm of uncertain behavior of right kidney Discharge Disposition: Discharge to home or self care 09/18/2024 Telephone [facility] [address] [address] Dev Galvin MD Referral Request 09/17/2024 Telephone [facility] Medical Group Gastroenterology at [address] [place] [address] Milo Hill MA 09/17/2024 Telephone [facility] Medical Group Gastroenterology at [address] [place] [address] Milo Hill MA 09/04/2024 3:48 PM CDT - 09/04/2024 11:59 PM CDT Hospital Encounter [facility] [address] [place] [address] CKD stage 3b, GFR 30-44 ml/min (HCC); Hypertension, unspecified type Discharge Disposition: Discharge to home or self care 08/29/2024 Telephone [facility] Medical Group Gastroenterology at [address] [place] [address] Pedro Almanza MD 08/29/2024 Telephone [facility] Medical Group Gastroenterology at [address] [place] [address] Dieter Bethanydenae Whitlock 08/25/2024 2:00 PM CDT Clinical Support [address] [place] [address] Senile osteoporosis (Primary Dx) 08/19/[address] [place] [address] Tessa Resendiz RN 08/15/2024 Orders Only [facility] Group Gastroenterology at [address] [place] [address] Pedro Almanza MD 08/14/2024 1:05 PM CDT Lab [facility] [address] [place] [address] 08/07/2024 11:49 AM CDT - 08/07/2024 11:59 PM CDT Hospital Encounter [facility] [address] [place] [address] Chronic idiopathic constipation Discharge Disposition: Discharge to home or self care 08/07/2024 10:45 AM CDT Office Visit [facility] Medical Group Gastroenterology at [address] [place] [address] Pedro Almanza MD Chronic idiopathic constipation (Primary Dx); Dyspepsia 08/05/2024 Telephone [facility] Medical Group Diabetes and Endocrinology [address] [place] [address] Rasheed Hudson MD Prolia Injection at [facility] Infusion 08/04/2024 Telephone [facility] of [address], [place] [address] Rasheed Hudson MD Prolia Injection at [facility] 08/04/2024 Orders Only [facility] Room at [facility] [address] [facility] [address] [place] [address] Rasheed Hudson MD 08/04/2024 10:50 AM CDT Lab [facility] [address] [place] [address] 08/04/2024 1:00 PM CDT Office Visit [facility] Medical Group Diabetes and Endocrinology [address] [place] [phone] Rasheed Hudson MD Age-related osteoporosis without current pathological fracture (Primary Dx); Stage 3a chronic kidney disease (HCC) 07/30/2024 Telephone [facility] [place] [address] [place] [address] Dev Galvin MD 07/30/2024 Telephone [facility] Diabetes and Endocrinology [address] [place] [phone] Rasheed Hudson MD request to pcp for insurance referral 07/23/2024 1:10 PM GENERAL OPHTHALMOLOGIST Lab [facility] [address] [place] [address] Lipid screening 07/22/2024 2:15 PM GENERAL OPHTHALMOLOGIST Office Visit [facility] Medical [facility] Primary Care at [address] [phone] Dev Galvin MD Lipid screening (Primary Dx); Age-related osteoporosis without current pathological fracture; Pulmonary hypertension, unspecified (HCC); Laryngopharyngeal reflux; Stage 3b chronic kidney disease (HCC); PAF (paroxysmal atrial fibrillation) (HCC) from Last 3 Months Allergies No known active allergies Medications acidophilus-pect in, citrus 100 million cell-10 mg capsule Take by mouth Active cholecalciferol (cholecalciferol ) 25 mcg (1,000 unit) tablet Take 1 tablet (1,000 Units total) by mouth daily Active d-mannose 500 mg capsule Take 1 tablet by mouth 2 (two) times a day Active calcium carb/vit D3/minerals (CALCIUM 600 + MINERALS ORAL) 07/26/19 22 Active aspirin 81 mg enteric coated tablet Take 1 tablet (81 mg total) by mouth daily Active acetaminophen 325 mg capsule Activ e lansoprazole (PREVACID) 30 mg capsule Take 1 capsule (30 mg total) by mouth daily In evening 90 capsule 3 04/26/20 23 Active denosumab (PROLIA) 60 mg/mL syringeIndicatio ns:Age-related osteoporosis without current pathological fracture Inject 1 mL (60 mg total) under the skin once for 1 dose 1 mL 07/25/19 24 Active cephalexin (KEFTAB) 250 mg tabletIndication s:Prevention of Bacterial Urinary Tract Infection Take 1 tablet (250 mg total) by mouth daily 90 tablet 3 10/18/19 24 025 Active fluticasone propionate (FLONASE) 50 mcg/actuation nasal spray 2 sprays daily 09/02/19 24 Active spironolactone (ALDACTONE) 25 mg tablet TAKE 1 TABLET(25 MG) BY MOUTH DAILY 90 tablet 3 11/28/19 24 Active famotidine (PEPCID) 20 mg tabletIndication s:Vocal fold nodule Take 1 tablet (20 mg total) by mouth nightly 90 tablet 3 01/31/20 24 Active acetaminophen ER (TYLENOL) 650 mg 8 hr tablet Take 2 tablets (1,300 mg total) by mouth nightly Active metoprolol XL (TOPROL-XL) 25 mg extended release tablet TAKE 1 TABLET(25 MG) BY MOUTH DAILY 90 tablet 3 05/06/20 24 Active furosemide (LASIX) 40 mg tablet 1 tablet daily as needed for swelling 90 tablet 3 07/24/19 25 Active simethicone (MYLICON) 125 mg chewable tablet Take 1 tablet (125 mg total) by mouth 3 (three) times a day with meals 90 tablet 3 08/08/19 25 025 Active ondansetron (ZOFRAN) 4 mg tablet Take 1 tablet (4 mg total) by mouth every 8 (eight) hours as needed for nausea or vomiting 60 tablet 3 08/08/19 25 025 Active potassium chloride ER 20 mEq CR tablet TAKE 1 TABLET(20 MEQ) BY MOUTH DAILY 90 tablet 2 10/07/19 25 Active potassium chloride ER 20 mEq CR tablet TAKE 1 TABLET(20 MEQ) BY MOUTH DAILY 90 tablet 2 03/31/20 24 025 Discontinued Active Problems Problem Noted Date Diagnosed Date History of colonic polyps 08/29/2024 Constipation 08/29/2024 Encounter for screening colonoscopy 08/29/2024 Laryngopharyngeal reflux 07/22/2024 Assessment & Plan (07/22/2024 2:56 PM GENERAL OPHTHALMOLOGIST): Cpntinue sno dual PPI and H2 favian to good effect and willfollwore sponse. Stage 3b chronic kidney disease 07/22/2024 Assessment & Plan (07/22/2024 2:56 PM GENERAL OPHTHALMOLOGIST): [id number] hydraiton and f/u with Dr. Nguyen, renal. No change at the present time. Peripheral tear of meniscus of right knee 2023 Medicare annual wellness visit, subsequent 02/02 Vocal fold nodule 01/31/2024 Assessment & Plan (04/30/2024 2:38 PM GENERAL OPHTHALMOLOGIST): Resolved, no nodule seen today Continue Prevacid 30-60 minutes prior to any other medication, food or fluids other than water Pepcid 20 mg at bedtime Assessment & Plan (01/31/2024 2:55 PM CDT): Prevacid 30-60 minutes prior to any other medication, food or fluids other than water Pepcid 20 mg at bedtime Follow up in 3 months for rescope and consider MDL with removal of Right true vocal fold nodule if not gone by then Stage 3a chronic kidney disease 01/06/2024 Sore throat 01/06/2024 Change in voice 01/06/2024 Lipid screening 01/06/2024 Assessment & Plan (07/22/2024 2:56 PM GENERAL OPHTHALMOLOGIST): Lab[facility] ordered and pending. Acute non-recurrent pansinusitis 06/01/2023 Assessment & Plan (06/01/2023 12:02 PM GENERAL OPHTHALMOLOGIST): Patient has been experiencing congestion and sinus pressure for greater than 2 weeks. Prescribed course of antibiotics, instructed patient to take medication with food. Can continue Tylenol/ ibuprofen as needed for headaches. Recommended Flonase use. Stressed importance of immediately discontinuing oxymetazoline. Patient to follow-up if no improvement in the next week or sooner if any new or worsening symptoms occur. Rhinitis medicamentosa 06/01/2023 Assessment & Plan (06/01/2023 12:00 PM GENERAL OPHTHALMOLOGIST): Explained to patient that using oxymetazoline beyond 3 days will cause rebound congestion. Instructed her to discontinue medication immediately. Prescribed prednisone taper and instructed on Flonase use. Skin tear of left elbow without complication Assessment & Plan (02/13/2023 3:54 PM CDT): Injury occurred greater than 2 weeks ago. Patient reports increased redness and tenderness in the past few days. No obvious signs of infection or systemic signs of infection. Given regression prescribed doxycycline in addition to topical mupirocin ointment. Instructed patient to wash with soap and water pat dry and apply thin layer of mupirocin. Alternate covering for protection and leaving open to air at times. Will update Tdap today. Instructed patient to follow-up with me in office she experiences any new or worsening symptoms. Cervical spinal stenosis 10/26/2022 Pancreatic cyst 08/18/2022 Assessment & Plan (05/04/2023 12:38 PM GENERAL OPHTHALMOLOGIST): Asymptomatic at the time. Will plan repeat evaluation in 1 year as recommended. Assessment & Plan (12/07/2022 12:04 PM CDT): Repeat MRCP to evaluate the pancreas and the pancreatic cyst in April of 2023 as recommended. 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 Small size cyst noted and no intervention was needed. She had EUS of the pancreas last year. Assessment & Plan (08/18/2022 12:17 PM CDT): Small 2 mm cyst noted on endoscopic ultrasound in 2021. Appearance was suggestive of a side-branch intraductal mucinous cystic neoplasm. This size the small and at this point no intervention is needed. Will plan repeat endoscopic ultrasound in 1 or 2 years. Spondylosis of lumbar region without myelopathy or radiculopathy 06/13/2022 Spinal stenosis of lumbar re gion without neurogenic claudication 06/13/2022 Mucinous cystadenoma of pancreas 05/10/2022 Assessment & Plan (05/10/2022 3:33 PM GENERAL OPHTHALMOLOGIST): Small 2 mm cystic lesions suggestive of branch chain mucinous neoplasm with the pancreas noted on endoscopic ultrasound. I doubt this is contributing to any symptoms at this time. Also considering the patient age and small size of the lesion conservative follow-up with imaging or repeat endoscopic ultrasound in 1 year will be pursued Chronic abdominal pain 03/25/2022 Assessment & Plan (05/04/2023 12:36 PM GENERAL OPHTHALMOLOGIST): Chronic upper abdominal pain likely referred burn from her back and the significant spinal stenosis. I think gentle exercising and muscle relaxant will be of benefit. Patient is following with pain management. Assessment & Plan (08/18/2022 12:18 PM CDT): Patient has chronic upper abdominal pain. All GI workup has been nonconclusive. I suspect neuropathic pain or possibly radiating pain from the back. Patient did not tolerate much of the pain modulating agents such as gabapentin or nortriptyline. Patient does not tolerate Linzess for the chronic constipation. She is doing well with fiber supplements. At this point she will try to see pain management as she might benefit from some intervention regarding her back pain which could be radiating to the front. Otherwise will plan to see the patient back in the office in 4 months and follow the pattern of her symptoms. Assessment & Plan (03/25/2022 7:23 PM CDT): Patient have chronic upper abdominal pain. Pain seems worse at this time with mild new weight loss. Will re-evaluate to rule out new changes. Schedule CT abdomen and pelvis with oral contrast only considering her Kidney issues. If normal will refer for EGD with EUS of the pancreas. To help with symptoms will start Gabapentin 100 mg PO bid. To rule out referred back pain, will schedule MRI of the thoracic and lumbar spines. Degenerative disc disease, cervical 09/27/2021 Degenerative cervical spinal stenosis 09/27/2021 Facet arthropathy, cervical 09/27/2021 Cervical radiculopathy 09/01/2021 Chronic right shoulder pain 09/01/2021 Chronic kidney disease 05/24/2021 Chills 03/28/2021 Pulmonary hypertension, unspecified 10/12/2020 Assessment & Plan (07/22/2024 2:56 PM GENERAL OPHTHALMOLOGIST): No s/s of fluid overlaoad. Continue to montior renal function with balance of diuresis and no increaed work of breathing. 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 Pathology reviewed as a benign lesion from the liver biopsy. Okay for submerging incisions. No heavy lifting for a further 2 weeks. Patient will call us back with any further questions or concerns. Assessment & Plan (06/24/2020 9:57 AM GENERAL OPHTHALMOLOGIST): Symptoms and HIDA scan consistent with biliary dyskinesia. We will set her up for laparoscopic cholecystectomy. Postoperative risks such as post cholecystectomy diarrhea have been explained. She is in understanding. Pre-admission testing will be sent in. Consent to be obtained. COVID -19 testing ordered Dyspepsia 04/20/2020 Overview (04/20/2020): Added automatically from request for surgery [id number] Assessment & Plan (08/12/2024 4:26 PM CDT): Still some nausea.continue Zofran PRN. Use Gas X with meals. Patient to call for update in 1 week. Assessment & Plan (05/04/2023 12:39 PM GENERAL OPHTHALMOLOGIST): Patient has tried ldkf-fot-kksfrpt Prevacid and seems to help. Will try Prevacid in the evening. Smoker 03/30/2020 Assessment & Plan (03/30/2020 3:26 PM GENERAL OPHTHALMOLOGIST): I discussed the importance of maintaining smoking cessation. This took approximately 5 minutes. Patient appears to be mildly motivated toward success. She has had prior success of up to 6 months. Status post Maze operation for atrial fibrillati on 03/30/2020 Overview (03/30/2020): Complex mitral valve repair using resection of the posterior leaflet and placement of a 32 Vance Bacon flexible band as well as a left atrial Patel Maze surgical ablation Current use of parts counterman anticoagulation 020 Assessment & Plan (03/30/2020 3:24 PM GENERAL OPHTHALMOLOGIST): With a chads Vasc score of 4 and a has bled score of 1, the patient would benefit from long-term anticoagulation. Leukocytosis 03/06/2020 Assessment & Plan (03/07/2020 10:32 AM CDT): WBC improved Remains afebrile Encourage OOB and IS UA neg Ileus, postoperative 03/05/2020 Assessment & Plan (03/07/2020 10:31 AM CDT): + BM Diet advanced and tolerating Encourage OOB and ambulation Continue bowel regimen Nausea improved. Acute blood loss anemia 03/05/2020 Assessment & Plan (03/05/2020 9:08 AM CDT): H/H remains stable- will continue daily CBC PAF (paroxysmal atrial fibrillation) 03/05/2020 Assessment & Plan (07/22/2024 2:56 PM GENERAL OPHTHALMOLOGIST): S/p maze. Remains in NSR. NO clinical palp;tiations. Assessment & Plan (07/10/2022 10:43 AM GENERAL OPHTHALMOLOGIST): SP Maze in February 2020. Stable denies reoccurrence, regular rate and rhythm on exam today. Metoprolol 25 mg xl daily. Assessment & Plan (03/30/2020 3:25 PM GENERAL OPHTHALMOLOGIST): Patient has had no evidence for recurrence of atrial fibrillation. She will continue with the amiodarone for another month and then this should be discontinued. Assessment & Plan (03/08/2020 12:13 PM CDT): PAF present on admission Now s/p MAZE on 03/03/2020 Currently NSR Will continue to monitor Decreased amio to 200 mg daily 2/2 nausea QTc 442 msec today H/O mitral valve repair 03/03/2020 Overview (03/30/2020): Complex mitral valve repair using resection of the posterior leaflet and placement of a 32 Vance Bacon flexible band as well as a left atrial Patel Maze surgical ablation Assessment & Plan (07/10/2022 10:52 AM GENERAL OPHTHALMOLOGIST): SP Mitral valve repair with mild to moderate MR on ECHO in January 2022. Asymptomic in clinic today with stable chronic ESCAMILLA. Improved ESCAMILLA and abdominal bloating after resuming aldactone. BMP and BNP today. Follow up [address] Mcdonough. IBS (irritable bowel syndrome) 02/11/2020 Assessment & Plan (05/04/2023 12:37 PM GENERAL OPHTHALMOLOGIST): Currently her bowel movements are good and the comfortable. No issues with constipation and diarrhea. She is managing well with the diet changes so she will continue the same. She actually gained few lb. 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 She had gallbladder US to f/u and this showed partial calcification but no porcelain gallbladder. She had some sludge as well and fatty liver. Discussed findings with patient. No biliary symptoms noted. Dyspnea on exertion 10/09/2019 Assessment & Plan (10/09/2019 11:17 AM CDT): Reviewed last CT lung ca screenin09/25/16 centrilobular emphysema found. Does not want to repeat CT at this time d/t covid epidemic & does not want to drive to [facility]. Agreeable to CXR at [facility]. Will contact w/results once rec'd. Discussed smoking cessation. Discussed maintenance COPD inhalers pending CXR results. Reviewed red flags. Discussed pursed lip breathing. Gastroesophageal reflux disease 10/09/2019 Assessment & Plan (01/12/2020 12:13 PM CDT): Overall doing well with pantoprazole daily and following GERD diet. She says she does still get breakthrough symptoms mostly in the evening. Pt should continue pantoprazole and follow GERD diet. She can use famotidine 20- 40mg prn for breakthrough symptoms in the evening. Assessment & Plan (12/11/2019 3:16 PM CDT): Pt had episode of N/V after having tomato products. She also had a few weeks where she would have burning in her throat and reflux. Started on omep 20mg daily October 08 but not too much difference in symptoms. Will stop omep and start pantoprazole 40mg daily. Continue to follow GERD diet. Assessment & Plan (10/09/2019 11:14 AM CDT): To start otc omeprazole 20mg daily. Stressed need to stop smoking. Reviewed provocative foods to avoid: caffeine, citrus, ETOH, carbonated drinks, fried/fatty/fast foods & rich/creamy sauces. Reviewed diet/exercise recommendations: 20-30min physicaly activity daily at minimum. Reviewed med Ses & scheduling. Weight loss will help improve GERD sxs. Keep HOB elevated 30 degrees & not eat 2-3 hrs before bedtime. Encounter for Medicare annual wellness exam 09/19 Assessment & Plan (10/08/2019 11:08 PM CDT): 1. Eat a healthy diet: focus on lean meats and proteins, more fruits, vegetables and whole grains and low in sugars and fats. Limit red meat and avoid processed meat. 2. Maintain a healthy weight; avoid being overweight. Aim for a normal body mass index (BMI) of 18.5-24.9. Help learning to eat healthier, we can set up appointment with core winder/cell room operator. 3. Have an active lifestyle, strive for 30 minutes of moderate exercise 5 times a week and strength or resistance training at least twice a week. 4. Use broad-spectrum (UVA+UVB) sunscreen with SPF 30 or greater, is water resistant, limit time spent in the sun (10 am-4pm), wear hat, wear UV protective clothing, wear sunglasses. Never use a tanning bed. Skin that was irradiated may be more sensitive over your lifetime. 5. Does smoke; does not wish to participate in a smoking cessation program. 6. Limit alcohol intake, 1 drink per day for a woman Encounter for screening for lipoid disorders Assessment & Plan (10/09/2019 11:16 AM CDT): Has not been watching intake during Covid longterm at home orders. Has been eating poor food choices. 08/14/18 GC=252 HDL=63 EJ=980 FXO=757 TC/HDL=3.0 10/09/19 DN=065 HDL=66 OW=577 NLH=202 TC/HDL=3.3 Copy of results as well as written explanations given to Mrs Allen. Reviewed diet changes to improve lipid panel. Chronic idiopathic constipation 03/25/2019 Assessment & Plan (08/12/2024 4:32 PM CDT): Add fiber gummies daily. Will check abdominal X ray to look for stool burden. Will schedule colonoscopy because of h/o polyps. Assessment & Plan (12/07/2022 12:03 PM CDT): Patient is comfortable with her bowel movements at this time. She uses milk of magnesia and is helpful. She did not tolerate any other laxatives or Linzess. We can continue milk of magnesia daily or as needed along with fiber supplements. Assessment & Plan (05/10/2022 3:31 PM GENERAL OPHTHALMOLOGIST): Start Linzess 145 micro g daily or every other day to help with the bowel movements. Patient can also use MiraLax powder daily or as needed. This may help improve patient's functional symptoms. Assessment & Plan (01/12/2020 12:12 PM CDT): Doing better on miralax once in the morning, fiber gummies in evening, and Fiber One cereal in evening. She says she had a good BM yesterday and this regimen seems to work well so far. Assessment & Plan (12/11/2019 3:19 PM CDT): Pt is taking fiber supplement daily and probiotics. She started eating Fiber One cereal consistently and now having more normal daily BM's. Pt says she tried taking a laxative pill but caused lots of abdominal pain/cramping. Pt advised to use Miralax prn along with fiber supplements. Assessment & Plan (06/02/2019 12:08 PM GENERAL OPHTHALMOLOGIST): Doing well on fiber gummies and probiotics daily. Continue this regimen. F/U prn. Assessment & Plan (03/25/2019 2:29 PM GENERAL OPHTHALMOLOGIST): Will add fiber supplement daily and patient to start taking probiotics. Cervicalgia 05/01/2018 Assessment & Plan (05/01/2018 3:58 PM GENERAL OPHTHALMOLOGIST): Left neck, left shoulder, left chest and left arm pain after participating in PT for her knee. She has been trying stretching, heat, ice, Aleve with no improvement. Will order PT Will have her try Medrol Dose pack and Tylenol Continue with heat and ROM Most likely r/t scar tissue from surgery and radiation s/p breast cancer treatment. RTC in 4 weeks for re-evaluation Acute cystitis without hematuria 02/20/2018 Assessment & Plan (02/20/2018 11:14 AM CDT): Today POSITIVE Nitrites in urine dipstick, +leuk, +blood Right flank pain Recurrent UTI's-4 times a year May need Urology consult if continues Last one in September 2017-+E.Coli-resistent to Cipro and Bactrim Pt. Managing constipation better with MOM Not sexually active Pt. To start Vitamin C 500 mg TID and cranberry extract daily Complete antibiotic as prescribed-Nitrofurantoin x 7 days Do not hold your urine. Urinate as soon as you feel the need to go Drink plenty of water and fluids. Limit alcohol, caffeine, and citrus juices- They will irritate the bladder Wipe front to back & wear cotton underwear Try emptying your bladder before and after having sexual intercourse Follow up with your PCP if you are not getting better For recurrent Urinary tract infections: UTI prevention strategies including use of vaginal estrogen(if postmenopausal) , Vitamin C supplementation,cranberry tablet supplementation, voiding after intercourse, scheduled voiding every 2-3 hours, and antibiotic suppression. If you have severe back, flank, or groin pain with nausea/vomiting or are unable to get comfortable from the pain, please go to ER for further treatment Tylenol/Motrin for pain Tobacco dependence due to cigarettes 01/24/2018 Assessment & Plan (10/09/2019 11:14 AM CDT): Precontemplative. Encouraged complete smoking cessation. Discussed different types of medications & bcjn-uqf-mzbzpha aides to help with cessation. Reviewed CT lung ca screenin09/25/16 centrilobular emphysema. Having ESCAMILLA at times now. Senile osteoporosis 12/19/2017 Dysuria 11/30/2017 BMI 24.0-24.9, adult 05/02/2017 Assessment & Plan (02/20/2018 11:07 AM CDT): BMI wnl Diet= low-carb Limit white bread, rice, pasta, potatoes, juice, energy drinks, coffee creamers with sugar, sugar sodas, candy, cake, cookies, ice cream. Be more careful with starchy vegetables like corn, carrots, and fruits. Stay away from processed foods, fast foods, fried foods. The cornerstone of this diet is lean grilled meats, green salads or cooked greens, fat-free milk, cottage cheese, nuts like fbeqmmx-sttgchz-wdmmqym, protein bars with 10-15 g of protein and 20-30 g of carbohydrate. Choose whole grain breads and pastas, brown rice, sweet potatoes, read onions--these whole grains absorb more slowly thus blood sugar does not surge so high so quickly. Avoid drinking juice, eat a piece of fruit instead. History of malignant neoplasm of breast 03/06/20 17 Multiple benign melanocytic nevi 08/15/2016 Vitamin D deficiency 06/09/2016 Overview (08/25/2016): Vitamin D deficiency Assessment & Plan (03/01/2020 6:04 PM CDT): Check vitamin D level Skin neoplasm 08/04/2014 Actinic keratosis 08/04/2014 Nevus of multiple sites of trunk 03/18/2013 Age-related osteoporosis wit hout current pathological fracture 12/04/2011 Overview (08/31/2017): Description: present many years tried RAL, RIS, ALN-lots of GI upset Assessment & Plan (07/22/2024 2:55 PM GENERAL OPHTHALMOLOGIST): Continues on prolia without diffiuclties and iwll follow response. NO change at the presnet time. Assessment & Plan (07/23/2023 11:00 AM GENERAL OPHTHALMOLOGIST): Chronic, uncontrolled, slightly worsening Reviewed and discussed patient last bone density scan results Plan to continue treatment with Prolia injections every 6 months Check labs soon Fall precautions Recommend to take current calcium and vitamin-D supplements Advised to include at least 2-3 servings of calcium intake in diet Follow-up in 1 year Assessment & Plan (10/03/2017 12:41 AM CDT): Continue with calcium and vitamin-D supplementation. Patient is on Prolia. Recurrent UTI 12/04/2011 Seborrheic keratosis 10/13/2010 Lump or mass in breast 11/18/2003 Cellulitis 11/11/2003 Allergic rhinitis 03/24/2003 Resolved Problems Problem Noted Date Diagnosed Date Resolved Date Mitral valve disorder 02/24/20202019 Overview (02/24/2020): Added automatically from request for surgery [id number] Assessment & Plan (03/08/2020 12:13 PM CDT): S/p Mitral Valve Repair, IRENE, MAZE on 03/03 Continue post operative care Increase activity as tolerated PT/OT.OOB Will dc pleural chest tubes today and repeat PA/Lat CXR DC Prevena Holding on low dose BB 2/2 low BP COPD exacerbation 02/17/2020 01/06/2024 Assessment & Plan (03/02/2020 9:25 AM CDT): She was prescribed home oxygen after a recent hospitalization, Dr Vang wants to see how she does off of oxygen prior to doing surgery Will order nebs if needed Centrilobular emphysema 10/09/201912/19 Assessment & Plan (10/09/2019 11:18 AM CDT): Continues to smoke [address] lung ca screenin09/25/16 centrilobular emphysema found. Does not want to repeat CT at this time d/t covid epidemic & does not want to drive to [facility]. Agreeable to CXR at [facility]. Will contact w/results once rec'd. Discussed smoking cessation. Discussed maintenance COPD inhalers pending CXR results. Reviewed red flags. Discussed pursed lip breathing. BMI 25.0-25.9,adult 10/09/2019 12/11/19 Assessment & Plan (10/09/2019 11:18 AM CDT): Discussed healthy diet and importance of regular physical activity. BMI is acceptable for this patient. Lower abdominal pain 03/13/2019 020 Overview (03/13/2019): Added automatically from request for surgery [id number] Assessment & Plan (06/02/2019 12:08 PM GENERAL OPHTHALMOLOGIST): Symptoms have resolved after completing course of abx. Assessment & Plan (03/25/2019 2:29 PM GENERAL OPHTHALMOLOGIST): Pt had CT of abdomen, colonoscopy, and labs done all unremarkable. No explanation for the pain she is experiencing. Possible this may be functional or neuropathic; however, we will try giving her a course of antibiotics for possible infection or bacterial overgrowth. After taking the antibiotics, she should then start on a probiotic daily. She also should start on fiber supplement daily. She has appointment with her LEGAL ANALYST doctor to rule out pain from this area. We will then follow up after this to reassess her symptoms and see how she is doing on the fiber, probiotics, and after finishing the flagyl. Assessment & Plan (03/13/2019 2:55 PM CDT): No fevers, chills, N/V, or altered bowel function involved. Pt does have history of 2 different kinds of cancer. Will order CT of abdomen/pelvis with contrast and schedule colonoscopy. Will also order CBC, CMP, ESR, CRP. Follow up after imaging and procedures are completed. If these tests are negative, I would recommend that patient be seen by LEGAL ANALYST. Urinary frequency 02/20/2018 10/08/2019 Closed displaced fracture of right patella 10/03/2017 10/08/2019 Assessment & Plan (10/03/2017 12:40 AM CDT): Ortho was consulted. Continue with p.r.n. morphine for pain control. NPO after midnight. Acute URI 04/09/2017 10/08/2019 Tobacco use 03/08/2017 10/08/2019 Assessment & Plan (10/03/2017 12:41 AM CDT): Patient smokes 1-2 packs per day since age of 23. She currently smokes 1 pack per day. She is refusing nicotine patch at this time. Assessment & Plan (05/02/2017 3:29 PM GENERAL OPHTHALMOLOGIST): Quit Smoking https://smokefree.gov/ Nicotine replacement therapy (NRT) is the most commonly used family of quit smoking medications. NRT reduces withdrawal feelings by giving you a small controlled amount of nicotine?but none of the other dangerous chemicals found in cigarettes. This small amount of nicotine helps satisfy your craving for nicotine and reduces the urge to smoke. NRT can t do all the work. It can help with withdrawal and cravings. But it won t completely take away the urge to smoke. Even if you use NRT to help you stop smoking, quitting can still be hard. Combining NRT with other strategies can improve your chances of quitting and staying quit. To give yourself the best chance for success, explore other quit methods you can combine with medication. Also think about: Developing a quit plan. Using quit programs such as SmokefreeTXT or calling a quitline. Using the [employer] jacinto for tips and inspiration to help you be smokefree. Prepare, Reduce creavings and Triggers, Reduce stress, Get Active, Eat Healthy Gum, Patches, Inhaler, lozenges, nasal spray or medications like Wellbutrin, Chantix Remind yourself of the rewards of quitting to help yourself stay on track: 20 minutes: heart rate, blood pressure drop 12 hours: carbon monoxide in blood stream drops to normal 2 weeks-3 months: circulation, lung function improve; heart attack risk begins to drop 1-9 months: cough less, breathe easier 1 year: risk of coronary heart disease cut in half 2-5 years: risk of cancer of mouth, throat, esophagus, bladder cut in half; stroke risk is reduced to that of a nonsmoker 10 years: half as likely to from lung cancer; risk of kidney or pancreatic cancer decreases 15 years: risk of coronary heart disease same as non-smoker s risk EXTRA MONEY Acute maxillary sinusitis 06/09/2016 Overview (08/25/2016): Acute non-recurrent maxillary sinusitis Acute urinary tract infection 12/28/2015 10/08/2019 Overview (08/25/2016): Acute UTI Assessment & Plan (05/02/2017 3:26 PM GENERAL OPHTHALMOLOGIST): Complete antibiotic as prescribed Do not hold your urine. Urinate as soon as you feel the need to go Drink plenty of water and fluids. Limit alcohol, caffeine, and citrus juices- They will irritate the bladder Wipe front to back & wear cotton underwear Try emptying your bladder before and after having sexual intercourse Follow up with your PCP if you are not getting better If you have severe back, flank, or groin pain with nausea/vomiting or are unable to get comfortable from the pain, please go to ER for further treatment Tylenol/Motrin for pain Edema 10/04/2013 10/08/2019 Overview (08/23/2016): EDEMA Dermatitis 10/04/2013 10/08/2019 Overview (08/23/2016): DERMATITIS NOS Mastodynia 03/24/2003 10/09/2019 Fever 10/08/2019 Mitral valve insufficiency 1 05/30/2019 Immunizations Immunization Administration Dates Next Due COVID-19 mRNA ([email or web address]) 0.3 m L (30 mcg) vaccine (12 years and up) 02/13/2023 Influenza, Quadrivalent, Sofya l Culture-based MDCK, Antibiotic Free, Intramuscular 07/08/2018 Influenza, Quadrivalent, Hig h Dose, Preservative Free, Intrr 02/07/2023,02/23/2022,02/10/2021,02/21 Influenza, Trivalent, High D ose, Split, Preservative Free, Intramuscular 02/07/2024,05/07/2019 Influenza, Unspecified 01/22/2024(Deferr ed: Patient Refused),02/07/2023,03/07/2022, 021,05/07/2019,05/01/2018(Deferred: Patient Refused),02/20/2018(Deferred: Patient Refused),01/24/2018(Deferred: Patient Refused),11/30/2017(Deferred: Patient Refused),05/21/2017(Deferred: Patient Refused),05/22/2016(Deferred: Patient Refused),05/22/2016(Deferred: Patient Refused),05/22/2016(Deferred: Patient Refused) [employer] SARS-CoV-2 Monovalent Vaccination (12+ Yrs) PURPLE 08/24/2021,02/15/2021 Pneumococcal Conjugate PCV 13 02/12/2015 Pneumococcal Polysaccharide PPV23 11/11/2008 RSV Vaccine, Pref, Recombina nt, Subunit, Adjuvanted, PF, IM (Arexvy) 02/19/2023 Tdap 02/13/2023 ZOSTER Recombinant 12/22/2022,10/04/2022 Social History Tobacco Use Types Packs/Day Years [...] on file Legal Sex Female 11:29 PM GENERAL OPHTHALMOLOGIST Gender Identity Not on file Sexual Orientation Not on file Occupation Industry Job Start Date Job End Date Retired Not on file Not on file Not on file Last Filed Vital Signs Vital Sign Reading Time Taken Comments
--- OUTSIDE RECORDS SUMMARY | 2024-10-08 00:58 | XMS_ITS | Encounter Summary ---
Author Organization [facility] Healthcare Address [address] [place] [address] Care Team Providers Care Floor Supervisor Name Role Phone Dev Galvin MD Primary Care Provider [phone] Wing Sweeney MD Unavailable [phone] Lincoln Vang MD Unavailable [phone] Manjeet Mcdonough MD Unavailable [phone] Ros Iqbal PT Unavailable Unavailable Encounter Details Date Type Department Care Team (Late st Contact Info) Description 01/26/2021 Telephone [facility] [address] [place] [address] Catia Montague, RT Social History Tobacco Use Types Packs/Day Years Used Date Smoking Tobacco: Former Cigarettes 1 52 1 - 02/23/2020 Smokeless Tobacco: Never Comments:Down to 3 cigarette s per day for 2 weeks Alcohol Use Standard Drinks/Week Comments No 0 (1 standard drink = 0.6 oz pur e alcohol) AUDIT-C Answer Date Recorded Q1: How often do you have a drink containing alc ohol? Never 08/25/2020 Average Number of Drinks Not on file 021 Frequency of Binge Drinking Not on file 11/2020 PHQ-2 Answer Date Recorded PHQ-2 Total Score (If total score is 3 or more points, staff should administer the PHQ-9) 0 10/12/2020 Comments No Sex and Gender Information Value Date Recorded Sex Assigned at Not on file Legal Sex Female 11:29 PM SUBMARINE ELEMENT COORDINATOR Gender Identity Not on file Sexual Orientation Not on file Occupation Industry Job Start Date Job End Date Retired Not on file Not on file Not on file documented as of this encounter Plan of Treatment Not on file documented as of this encounter Visit Diagnoses Not on filedocumented in this encounter Care Teams Floor Supervisor Relationship Specialty Start Date End Date Dev Galvin MD [address] [place] [address] PCP - General 10/02/17 Wing Sweeney MD [address] [place] [address] [address] [address] Surgeon Orthopedic Surgery 10/06/17 Lincoln Vang MD [phone] [place] [address] Surgeon Cardiothoracic Surgery 03/09/20 Manjeet Mcdonough MD [phone] [place] [address] Referring Physician Cardiology 06/14/20 Ros Iqbal PT Physical Therapist Physical Therapy 09/15/21 documented as of this encounter
--- OUTSIDE RECORDS SUMMARY | 2024-10-08 00:59 | XMS_ITS | Continuity of Care Document ---
Author Organization [facility] Address [address] [place] [address] Phone Care Team Providers Care Independent Distributor Name Role Phone David Jacobs MD Unavailable Unavailable Advance Directives Directive Yes / No Effective Date File Name No Information Encounters Encounter Description Practice Location Reason(s) For Visit Diagnoses Date Provider Providers Copied on Encounter [facility], [address], [place], [place], [id number] , tel: [phone] [facility] No Information 2 Reynaldo Hernandez. [address] [place] [address], [facility] [address] , [place], [place], [address] [place] [address] , . tel: [phone] [facility], [address], [place], [place], [address] , tel: [phone] [facility] LUMP OR MASS IN BREAST Efrain-3 0-200 4 [facility]. [address] [place] [address], [address] , [place], [place], [address] [place] [address] , . tel: [phone] [facility], [address], [place], [place], [address] , tel: [phone] [facility] CELLULITIS NOS Efrain-2 3-200 4 Hardy Anders. [address] [facility], [address], [place], [place], [address] , . tel: [phone] [facility], [address], [place], [place], [address] , tel: [phone] [facility] URIN TRACT INFECTION NOS Efrain-0 4-200 4 Reynaldo Hernandez. [address] [place] [facility], [address], [place], [place], [address] [place] [address] , . tel: [phone] [facility], [address], [place], [place], [address] , [place] tel: [phone] [facility] MASTODYNIASENILE OSTEOPOROSISALLERGIC RHINITIS NOS 3 Reynaldo Hernandez. [address] [place] [facility], [address], [place], [place], [address] , [place]. tel: [phone] Family History Family Member Type Diagnosis Age At Onset No Information Payers Payer name Insurance type Covered republican ID Authoriza tion(s) No Information Social History Type Description Quantity Date Captured Comments Alcohol Use Details Unknown Caffeine Use Details Unknown Tobacco Use Status No Information Smoking Status No Information Sex Female Chief Complaint And Reason For Visit No Information Reason For Referral Reason For Referral No Information History Of Present Illness Encounter Date Complaint History Of Prese nt Illness No Information Functional Status Date Functional Assessmen t No Information Instructions Date Instruction Additional Infor mation No Information Assessments Type Assessment Date No Information Patient Care Teams Name Effective Dates (start - stop) Status Members No Information
--- OUTSIDE RECORDS SUMMARY | 2024-10-08 00:59 | XMS_ITS | Encounter Summary ---
Author Organization [facility] Address [address] [place] [address] Phone Care Team Providers Care Motor Scooter Mechanic Name Role Phone Dev Galvin MD Primary Care Provider [phone] Clarence Cordova MD Primary Care Provider [phone] Clarence Cordova MD Primary Care Provider [phone] Dev Galvin MD Primary Care Provider [phone] Clarence Cordova MD Primary Care Provider [phone] Dev Galvin MD Primary Care Provider [phone] Wing Sweeney MD Unavailable [phone] Sylvie Marks RN Unavailable [phone] Bryan Huang MD Unavailable [phone] Sylvie Marks RN Unavailable [phone] Lincoln Vang MD Unavailable [phone] Miscellaneous, Not In File Unavailable Unava ilable Clarence Nolan DO Unavailable [phone] Manjeet Mcdonough MD Unavailable [phone] Ros Iqbal PT Unavailable Unavailable Encounter Details Date Type Department Care Team (Late st Contact Info) Description 05/12/2017 Orders Only [facility] Provider, MD Jones [address] [place] [address] Social History Tobacco Use Types Packs/Day Years Used Date Smoking Tobacco: Heavy Smoker Cigarettes Smokeless Tobacco: Never Comments:Smoking History Pac ks/day: 1 Packs Alcohol Use Standard Drinks/Week Comments No 0 (1 standard drink = 0.6 oz pur e alcohol) Comments Unknown Sex and Gender Information Value Date Recorded Sex Assigned at Not on file Legal Sex Female 11:29 PM MAINTAINABILITY ENGINEER Gender Identity Not on file Sexual Orientation Not on file documented as of this encounter Plan of Treatment Not on file documented as of this encounter Procedures Procedure Name Priority Date/Time Associated Diagnosis Comments DISCHARGE LABORATORY CUMULATIVE REPORT 05/12/2017 12:00 AM MAINTAINABILITY ENGINEER documented in this encounter Results * DISCHARGE LABORATORY CUMULATIVE REPORT (05/12/2017 12:00 AM MAINTAINABILITY ENGINEER) Narrative 05/12/2017 12:00 AM MAINTAINABILITY ENGINEER Ordered by an unspecified provider. Historical Provider LAB BLOOD ORDERABLES Yisel l Result documented in this encounter Visit Diagnoses Not on filedocumented in this encounter Additional Health Concerns Infection Onset Date Last Indicated Resolved Time COVID: Suspected 02/16/2020 02/16/2020 02/16/2020 9:47 PM CDT Respiratory Infection (KRIS), contact + droplet Comment:Automatically added due to negative COVID-19 result. 02/16/2020 02/16/2020 02/17/2020 8:0 0 AM CDT COVID: Suspected 02/18/2020 02/18/2020 02/18/2020 8:18 PM CDT Respiratory Infection (KRIS), contact + droplet Comment:Automatically added due to negative COVID-19 result. 02/18/2020 02/18/2020 02/19/2020 10: 59 AM CDT documented as of this encounter Care Teams Motor Scooter Mechanic Relationship Specialty Start Date End [place] [address] PCP - General Family Medicine 04/09/17 08/13/17 Clarence Cordova MD [address] [address] PCP - General 08/14/17 08/20/17 Clarence Cordova MD [address] [address] PCP - General 08/21/17 08/21/17 Dev Galvin MD [address] [place] [address] PCP - General 08/22/17 09/06/17 Clarence Cordova MD [address] [address] PCP - General 09/07/17 10/01/17 Dev Galvin MD [address] [place] [address] PCP - General 10/02/17 Wing Sweeney MD [address] [facility] [address] [address] Surgeon Orthopedic Surgery 10/06/17 Sylvie Marks, ZULLY [address] [facility] [address] [place], [place] [id number] Associate Product Integrity Engineer 10/11/17 11/15/17 Bryan Huang MD [address] [facility] [address] [place], [place] [id number] Consulting Physician Cardiovascular Disease 02/22/20 1 Sylvie Marks, RN [address] [facility] [address] [place] [address] Associate Product Integrity Engineer 02/26/20 03/16/20 Lincoln Vang MD [phone] [place] [address] Surgeon Cardiothoracic Surgery 03/09/20 Miscellaneous, Not In File 03/09/20 06/13/20 Clarence Nolan DO [address] [place] [address] [address] [place] [address] Consulting Physician Cardiovascular Disease 03/15/20 Manjeet Mcdonough MD [address] [place] [address] [address] [place], [place] [address], [place] [address] Referring Physician Cardiology 06/14/20 Ros Iqbal PT Physical Therapist Physical Therapy 09/15/21 documented as of this encounter
--- OUTSIDE RECORDS SUMMARY | 2024-10-08 00:59 | XMS_ITS | CONTINUITY OF CARE DOCUMENT ---
Author Name ezio frannataila Address Unknown Organization [facility] Address [address] [facility] [address] [place] [address] Phone [phone] Care Team Providers Care District Supervisor Name Role Phone Shirley GUZMAN, Earl Unavailable [phone] ROSELIA HALLMAN MD Unavailable [phone] PROBLEMS Condition Status Date Provider Notes Cardiology examination active Ramón elizabeth SVT s/p ablation active Ramón Pete IBS (irritable bowel syndrome) active Bassam Pete Dizziness active Ramón Pete ENCOUNTERS Date Type Provider Location Encounter Diag nosis - In-person encounter Office Visit Earl Watson MD [facility] Cardiology examinationSVT s/p ablationIBS (irritable bowel syndrome)Dizziness VITAL SIGNS Date Observation Value Provider Body Mass Index (Ratio) 24.80 kg/m2 Julio Pete blood pressure, resting No Brit chaitanya Block oxygen saturation, oximetry 95 % Sunshine Block pulse rate 77 /min Sunshine Block blood pressure, diastolic 86 mm[Hg] Br ittany Block blood pressure, systolic 120 mm[Hg] Leny ttany Block height E&M 63 [in_i] Sunshine Block weight E&M 140 [lb_av] Sunshine Block respiratory rate E&M 16 /min Brittan y Block ALLERGIES No Known Drug Allergies HISTORY OF MEDICATION USE Medication Status Instructions Dates Provider Indications Com ments FLECAINIDE ACETATE 50 MG ORAL TABLET active one tab twice daily. 3 Ramón Pete MAGNESIUM OXIDE 400 MG ORAL TABLET active once daily 3 Ramón Pete PROLIA 60 MG/ML SUBCUTANEOUS SOLUTION PREFILLED SYRINGE active inject q6 months 3 Sunshine Paco CRANBERRY 500 MG ORAL CAPSULE active 1 tab daily 3 Sunshine Paco CALCIUM + D3 TABLET active 1 tab daily 3 Sunshine Paco SM VITAMIN C TABLET active 1 tab 3x daily 3 Sunshine Paco TYLENOL CAPSULE active prn 3 Sunshine Paco E 1000 1000 UNIT ORAL CAPSULE active 1 tab daily 3 Sunshine Paco MIRALAX 17 GM ORAL PACKET active 1x daily 3 Sunshine Paco FIBERCON 625 MG ORAL TABLET active 1 tab daily 3 Sunshine Antonio EQL MILK OF MAGNESIA 1200 MG/15ML ORAL SUSPENSION active prn 3 Sunshine Antonio AFRIN 12 HOUR 0.05 % NASAL SOLUTION active prn 3 Sunshine Antonio LACTOBACILLUS ORAL TABLET active 1 tab daily 3 Sunshine Paco METOPROLOL SUCCINATE ER 50 MG ORAL TABLET EXTENDED RELEASE 24 HOUR active TK 1 T PO ONCE D 0 Sunshine Block #30, 30 days supply, Prescribed by FOZIA ORNELAS, Filled 02/09/2020 SOCIAL HISTORY Date Observation Value Provider cigarette use yes Ramón george smoking status Current every day smoker N chandrika Pete social history E&M S moking History: P atient currently smokes every day. Ramón Pete social history reviewed E&M revi ewed - no changes required Ramón Pete number of grandchildren Earl Pete alcohol use no Sunshine Antonio number of years as a smoker 51 a Sunshine Antonio smoking history, total pack/day 1 Sunshine Antonio FAMILY HISTORY Family Member Condition Mother Family History of Di abetes: Father Family History of Co ngestive Heart Failure: INSURANCE PROVIDERS Payer name Policy type / Coverage type [place] red democrat ID [facility] MEDICARE ADVANTAGE (PPO) Other [id number] ADVANCE DIRECTIVES Name Date LIVING WILL ON FILE TREATMENT PLAN Date Name Performer Electrophysiology Ramón Franklinmitra os Electrophysiology: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 H ad a right atrial tachycardia that was not ablated. S TART Magnesium 400 mg once daily S TART Flecainide 50 mg BID D id not have accessory pathway seen during previous ablation. Most likely tachycardia is RA tachycardia or runs of AFib. For that reason we recommend class 1c medication in addition to BB and Magnesium in the short term. emt intermediate, ablation can be considered. Her updated medication list for this problem includes: Metoprolol Succinate Er 50 Mg Oral Tablet Extended Release 24 Hour (Metoprolol succinate) ..... Tk 1 t po once d Ramón Yanci Date Name Complete Echo HISTORY OF PROCEDURES Procedure Date Procedure Name Provider Procedure Notes S tatus EKG Earl Watson MD comp leted
--- OUTSIDE RECORDS SUMMARY | 2024-10-08 00:59 | XMS_ITS | Clinical Summary ---
Author Organization [facility] Address [address] [place] [address] Care Team Providers Care Awake Overnight Counselor Name Role Phone Dev Galvin Primary Care Provider [phone] Allergies No known active allergies Medications Denosumab (Prolia) 60 MG/ML solution prefilled syringe Inject 60 mg under the skin 8 Active Probiotic Product (Probiotic Daily) capsule Take 1 tablet by mouth daily 8 Active aspirin (ST RENATO) 81 MG EC tablet Take 81 mg by mouth 1 (one) time each day Active famotidine (PEPCID) 10 MG tablet Take 10 mg by mouth 2 (two) times a day if needed Active loratadine (CLARITIN) 10 MG tablet Take 10 mg by mouth 1 (one) time each day 2-4 daily Active furosemide (LASIX) 20 MG tablet Take 40 mg by mouth 1 (one) time each day Can take an extra tablet daily prn edema Active cephalexin (KEFLEX) 250 MG capsule Take 250 mg by mouth every night Active D-Mannose 500 MG capsule Take 1 tablet by mouth 2 (two) times a day Active metoprolol succinate XL (TOPROL XL) 25 MG 24 hr tablet Take 25 mg by mouth 1 (one) time each day Do not crush or chew. Active acetaminophen (TYLENOL) 325 MG tablet Take by mouth if needed for mild pain Active Vitamin D, Cholecalciferol, 25 MCG (1000 UT) tablet Take by mouth 1 (one) time each day Active potassium chloride (KLOR-CON M20) 20 MEQ CR tablet Take 20 mEq by mouth 1 (one) time each day Do not crush or chew. Active spironolactone (ALDACTONE) 25 MG tablet Take 25 mg by mouth 1 (one) time each day Active simethicone (MYLICON) 80 MG chewable tablet Chew 80 mg every 6 (six) hours if needed for flatulence Active ondansetron (ZOFRAN) 4 MG tablet Take 4 mg by mouth every 8 (eight) hours if needed for nausea or vomiting Active fluticasone (FLONASE) 50 MCG/ACT nasal spray Administer 1 spray into each nostril 1 (one) time each day Active lansoprazole (PREVACID SOLUTAB) 30 MG dispersible tablet Take 30 mg by mouth 1 (one) time each day Dissolve on tongue before swallowing particles; do not chew, cut, break, or swallow whole. Active calcium carbonate (Calcium 600) 600 MG tablet Take 600 mg by mouth in the morning and 600 mg in the evening. Take with meals. Active Active Problems No known active problems Encounters Date Type Department Care Team Description 10/01/2024 Documentation Only [facility]. [address] [facility] [phone] Thanh Nguyen MD 09/18/2024 Transcribe Orders [facility]. [address] [facility] [address] Ros Rodrigues MA 09/18/2024 Transcribe Orders [facility]. [address] [facility] [address] Ros Rodrigues MA 09/18/2024 Documentation Only [facility] [place]. [address] [place] [address] Ros Rodrigues MA 09/18/2024 Orders Only [facility] [place]. [address] [facility] [address] Ros Rodrigues MA 09/18/2024 Orders Only [facility] [place]. [address] [place] [address] Ros Rodrigues MA 09/18/2024 Orders Only [facility]. [address] [place] [address] Ros Rodrigues MA 09/18/2024 Orders Only [facility] [place]. [address] [facility] [address] Ros Rodrigues MA 09/18/2024 Documentation Only [facility]. [address] [place] [address] Ros Rodrigues MA 09/18/2024 Orders Only [facility]. [address] [place] [address] Ros Rodrigues MA Stage 3b chronic kidney disease (HCC) (Primary Dx); Hypertension; Hypertensive chronic kidney disease, unspecified, with chronic kidney disease stage I through stage IV, or unspecified; Acute kidney failure with other specified pathological lesion in kidney (HCC); Neoplasm of right kidney, not otherwise specified; Neoplasm of uncertain behavior of right kidney 09/18/2024 Orders Only [facility]. [address] [place] [address] Ros Rodrigues MA Stage 3b chronic kidney disease (HCC) (Primary Dx); Hypertension; Hypertensive chronic kidney disease, unspecified, with chronic kidney disease stage I through stage IV, or unspecified; Acute kidney failure with other specified pathological lesion in kidney (HCC); Neoplasm of uncertain behavior of right kidney; Neoplasm of right kidney, not otherwise specified 08/13/2024 1:15 PM CDT Office Visit [facility]. [address] [facility] [address] Thanh Nguyen MD Stage 3b chronic kidney disease (HCC) (Primary Dx); Hypertension from Last 3 Months Family History Medical History Relation Comments Cancer Cousin COPD Father Cancer Father Heart disease Father Cancer Maternal Grandmother Cancer Mother Diabetes Mother Heart disease Mother Cancer Mother's Sister Cancer Sister Relation Status Comments Cousin Alive Father Maternal Grandmother Mother Mother's Sister Alive Sister Social History Tobacco Use Types Packs/Day Years Used Date Smoking Tobacco: Former Cigarettes 1 55 1 2019 Smokeless Tobacco: Never Alcohol Use Standard Drinks/Week Comments Not Asked 0 (1 standard drink = 0.6 oz pur e alcohol) Comments Unknown Sex and Gender Information Value Date Recorded Sex Assigned at Female 08/06/2024 6:13 AM EDT Legal Sex Female 2:33 PM EDT Gender Identity Female 08/06/2024 6:13 AM EDT Sexual Orientation Not on file Occupation Industry Job Start Date Job End Date Retired Not on file Not on file Not on file Last Filed Vital Signs Vital Sign Reading Time Taken Comments Blood Pressure 136/64 08/13/2024 1:23 PM CDT Pulse 73 08/13/2024 1:23 PM CDT Temperature 36.6 C (97.8 F) 08/13/2024 1:23 PM CDT Respiratory Rate - - Oxygen Saturation 100% 08/13/2024 1:23 PM CDT Inhaled Oxygen Concentration - - Weight 65.8 kg (145 lb) 08/13/2024 1:23 PM CDT Height 160 cm (5' 3 ) 12/10/2020 9:36 AM CDT Body Mass Index 25.69 12/10/2020 9:36 AM CDT Plan of Treatment Upcoming Encounters Date Type Department Care Team (Late st Contact Info) Description 11/12/2024 2:30 PM CDT Office Visit [facility]. [address] [facility] [address] [place] [address] Thanh Nguyen MD [address] [facility] [address] [place] [id number] Health Maintenance Due Date Last Done Comments Pneumococcal Vaccine: 50+ Years Completed 02/12/2015, 11/11/2008 Influenza Vaccine Completed 02/07/2024, , 03/07/2022, Additional history exists Hepatitis B Vaccine Aged Out No longe r eligible based on patient's age to complete this topic Insurance [employer] MCR Adv PPO ([id number]) Care Teams Awake Overnight Counselor Relationship Specialty Start Date End Date Dev Galvin [address] [place] [address] PCP - General Internal Medicine 10/26/20
[2024-10-08 12:52] VITALS: BP 143/78; PULSE 87; RESP 20; TEMP 36.2; O2SAT 99
[2024-10-08] MEDS: LACTATED RINGERS 1,000 ML 150 ML IV CONT (12:54)
--- NOTE | 2024-10-08 14:26 | P.HP_ITS ---
H&P: HPI History of Present Illness Date/Time: 10/08/24 14:26 Chief Complaint: Change in bowel habits-abdominal pain -GERD Narrative: the patient has been suffering from abdominal pain, crampy type for several ye ars, and in April 2024 she had a severe episode of constipation. She is currently having irregular bowel habits. She does have a history of colonic polyps, the last colonoscopy was 6 years ago. In addition she has intermittent heartburn not associated with dysphagia, nausea or vomiting. She is referred for EGD and colonoscopy. Review of Systems Review of Systems: All systems reviewed & are unremarkable except as noted in HPI and below PMFSH Past Medical History Medical History (Updated 09/25/24 @ 12:49 by OCTAVIO Vernon) SVT (supraventricular tachycardia) Cataracts, bilateral Sick sinus syndrome COPD (chronic obstructive pulmonary disease) CHF (congestive heart failure) CKD (chronic kidney disease) CAD (coronary artery disease) Breast cancer Afib Weight gain Bloating Constipation GERD (gastroesophageal reflux disease) Epigastric pain Nausea & vomiting Surgical History Surgical History (Updated 09/25/24 @ 12:49 by OCTAVIO Vernon) H/O tubal ligation History of tonsillectomy H/O: hysterectomy Hx of cholecystectomy History of cardiac ablation for atrial fibrillation Heart valve replaced Family History Family History Father High cholesterol Heart disease Cancer Pulmonary disease Mother High cholesterol Hypertension Cancer Sibling Cancer Social History Social History Smoking packs per day: 1 Smoking cigarettes per day: 20.0 Years smoked: 50 Smoking pack-years: 50.00 Smoking status: Former smoker Tobacco type: cigarettes Smoking end date: 03/03/20 Alcohol intake: never Substance use: never Substance use type: does not use Living arrangements: with family Gender identity (if verbalized by the patient): Female Spiritual care concerns: No Meds Home Medications and Allergies Home Medications Medication Instructions Recorded Confirmed Type acetaminophen 325 mg tablet 650 mg PO ONCE PRN Pain 04/19/20 10/06/24 History aspirin 81 mg tablet 81 mg PO DAILY 04/19/20 10/08/24 History calcium carbonate (Calcium 600) 600 mg PO DAILY 04/19/20 10/08/24 History calcium polycarbophil 625 mg 625 mg PO DAILY 04/19/20 10/08/24 History tablet (FiberCon) cholecalciferol (vitamin D3) 50 50 mcg PO DAILY 04/19/20 10/08/24 History mcg (2,000 unit) tablet denosumab 60 mg/mL subcutaneous 60 mg subcut [id number] 04/19/20 10/08/24 History syringe famotidine-Ca carb-mag hydrox 10 1 tablet PO DAILY Heartburn 04/19/20 10/08/24 History mg-800 mg-165 mg chewable tablet metoprolol succinate 25 mg 37.5 mg PO DAILY 04/19/20 10/08/24 History tablet,extended release 24 hr polyethylene glycol 3350 17 17 g PO DAILY 04/19/20 10/08/24 History gram/dose oral powder (Miralax) pantoprazole 40 mg tablet,delayed 40 mg PO QAM 06/02/20 10/08/24 History release (Protonix) furosemide 20 mg tablet (Lasix) 20 mg PO DAILY 06/21/20 10/08/24 History tenapanor 50 mg tablet (Ibsrela) 50 mg PO BID 1 month #60 tabs 09/25/24 10/08/24 Rx tenapanor 50 mg tablet (Ibsrela) 50 mg Tablet#4 Samples 09/25/24 10/08/24 Sample sodium,potassium,mag sulfates 17.5 See Rx Instructions PO .COMPLEX 10/02/24 10/08/24 Rx gram-3.13 gram-1.6 gram oral soln #354 mL (Suprep Bowel Prep Kit) Allergies Allergy/AdvReac Type Severity Reaction Status Date / Time No Known Allergies Allergy Verified 10/08/24 12:45 Vital Signs Vital Signs - 24 hr 10/08/24 12:52 Temperature 97.2 F L Pulse Rate 87 Respiratory Rate 20 Blood Pressure 143/78 H Pulse Oximetry 99 Oxygen Delivery Room Air Exam Const: General: cooperative and healthy appearing Resp: Effort & Inspection: normal respiratory effort and able to speak in complete sentences Auscultation: clear to auscultation bilaterally Cardio: Rate: regular rate Rhythm: regular rhythm GI: Inspection: normal to inspection GI Palp: No No hepatosplenomegaly present Auscultation: normal bowel sounds Rectal Exam: deferred Skin: General skin exam: normal color Psych: Appearance: grossly normal Mental Status: mental status grossly normal Assessment and Plan Assessment and plan (1) Epigastric pain: Code(s): R10.13 - Epigastric pain Status: Acute Assessment and Plan: The patient is deemed a good candidate for the procedures. Consent signed. Will proceed. (2) Constipation: Code(s): K59.00 - Constipation, unspecified Status: Acute
--- NOTE | 2024-10-08 14:56 | SUR.OPER ---
EGD: [id number] COLON: Start 7814
[2024-10-08 15:12] VITALS: BP 89/37; PULSE 66; RESP 20; O2SAT 95
[2024-10-08 15:22] VITALS: BP 97/62; PULSE 69; RESP 19; O2SAT 98
[2024-10-08 15:32] VITALS: BP 121/60; PULSE 71; RESP 14; O2SAT 98
--- NOTE | 2024-10-09 11:52 | WPDANESEPPF ---
Anes - Initial Pre Proc Eval Procedure: Operation Date: 10/08/24 13:15 Proposed Procedures p Esophagogastroduodenoscopy & Colonoscopy - Bacilio Parr MD Date/Time: 10/09/24 11:52 Surgeon: Bacilio Parr MD Pre Op Diagnosis: Epigastric pain, Nausea with vomiting, unspecified Patient Data Age: 79 Gender: F Height: 1.57 m Weight: 64.7 kg Last Vital Signs Temp 36.2 C L 10/08/24 12:52 Pulse 71 10/08/24 15:32 Resp 14 10/08/24 15:32 BP 121/60 10/08/24 15:32 Pulse Ox 98 10/08/24 15:32 O2 Del Method Room Air 10/08/24 15:32 Allergies Allergy/AdvReac Type Severity Reaction Status Date / Time No Known Allergies Allergy Verified 10/08/24 12:45 Home Medications Medication Instructions Recorded Confirmed Type acetaminophen 325 mg tablet 650 mg PO ONCE PRN Pain 04/19/20 10/06/24 History aspirin 81 mg tablet 81 mg PO DAILY 04/19/20 10/08/24 History calcium carbonate (Calcium 600) 600 mg PO DAILY 04/19/20 10/08/24 History calcium polycarbophil 625 mg 625 mg PO DAILY 04/19/20 10/08/24 History tablet (FiberCon) cholecalciferol (vitamin D3) 50 50 mcg PO DAILY 04/19/20 10/08/24 History mcg (2,000 unit) tablet denosumab 60 mg/mL subcutaneous 60 mg subcut [id number] 04/19/20 10/08/24 History syringe famotidine-Ca carb-mag hydrox 10 1 tablet PO DAILY Heartburn 04/19/20 10/08/24 History mg-800 mg-165 mg chewable tablet metoprolol succinate 25 mg 37.5 mg PO DAILY 04/19/20 10/08/24 History tablet,extended release 24 hr polyethylene glycol 3350 17 17 g PO DAILY 04/19/20 10/08/24 History gram/dose oral powder (Miralax) pantoprazole 40 mg tablet,delayed 40 mg PO QAM 06/02/20 10/08/24 History release (Protonix) furosemide 20 mg tablet (Lasix) 20 mg PO DAILY 06/21/20 10/08/24 History tenapanor 50 mg tablet (Ibsrela) 50 mg PO BID 1 month #60 tabs 09/25/24 10/08/24 Rx tenapanor 50 mg tablet (Ibsrela) 50 mg Tablet#4 Samples 09/25/24 10/08/24 Sample sodium,potassium,mag sulfates 17.5 See Rx Instructions PO .COMPLEX 10/02/24 10/08/24 Rx gram-3.13 gram-1.6 gram oral soln #354 mL (Suprep Bowel Prep Kit) Patient hx anesthesia problems: none Family hx anesthesia problems: none Results Review: All pre-operative results and documents have been reviewed as part of the pre-operative evaluation. [facility] Past Medical History Medical History SVT (supraventricular tachycardia) Cataracts, bilateral Sick sinus syndrome COPD (chronic obstructive pulmonary disease) CHF (congestive heart failure) CKD (chronic kidney disease) CAD (coronary artery disease) Breast cancer Afib Weight gain Bloating Constipation GERD (gastroesophageal reflux disease) Epigastric pain Nausea & vomiting Surgical History Surgical History H/O tubal ligation History of tonsillectomy H/O: hysterectomy Hx of cholecystectomy History of cardiac ablation for atrial fibrillation Heart valve replaced Family History Family History Father High cholesterol Heart disease Cancer Pulmonary disease Mother High cholesterol Hypertension Cancer Sibling Cancer Social History Social History Smoking packs per day: 1 Smoking cigarettes per day: 20.0 Years smoked: 50 Smoking pack-years: 50.00 Smoking status: Former smoker Tobacco type: cigarettes Smoking end date: 03/03/20 Alcohol intake: never Substance use: never Substance use type: does not use Living arrangements: with family Gender identity (if verbalized by the patient): Female Spiritual care concerns: No Anes - Eval Final PreProcedure Day of Procedure 10/09/24 11:52 Patient weight: normal Heart: regular rate and rhythm Lungs: clear to auscultation Airway: Mallampati scale class II Neurological: alert and oriented Last oral intake: >/= 8 hours ASA classification: IV Emergent: no Anesthetic plan: proceed Anesthesia type and monitoring: general GIVS and standard monitoring Results Review: All pre-operative results and documents have been reviewed as part of the pre-operative evaluation. Informed Consent: The patient's anesthetic plan and its attendant risks and benefits were discussed with the patient/family/POA. Questions were solicited and answers provided to the satisfaction of the patient/family/POA.
== END 2024-10-08 15:45 | disposition home or self-care (01) ==
PROVIDERS: PCP Family Medicine; Referring Provider Nurse Practitioner Family; Visit Provider Internal Medicine Gastroenterology
PROC: 0DJ08ZZ Inspection of Upper Intestinal Tract, Via Natural or Artificial Opening Endoscopic (ICD-10-PCS; CPT 45378; principal; 2024-10-08 13:15)
DX: K59.00 Constipation, unspecified (principal); K57.30 Diverticulosis of large intestine without perforation or abscess without bleeding; K21.9 Gastro-esophageal reflux disease without esophagitis; K29.30 Chronic superficial gastritis without bleeding; Z86.0100 Personal history of colon polyps, unspecified; Z87.891 Personal history of nicotine dependence
CPT/HCPCS: 45378; 43239; 88305; J2003; J2704; J7120